=== PATIENT | female | born 1960 | race Caucasian/White ===

== ENCOUNTER 2023-03-11 10:42 | Emergency (ER) | payer MEDICARE, OTHER ==
[2023-03-11 10:54] VITALS: TEMP 98
[2023-03-11 11:54] LABS: Basophils % (A) 0 %; Eosinophils # (A) 0.2 k/uL (0-0.7); Eosinophils % (A) 2 %; HCT 40.3 % (34.0-46.0); HGB 13.4 gm/dL (11.4-16.0); Lymphocytes # (A) 1.7 k/uL (1.0-4.8); Lymphocytes % (A) 25 %; MCH 31.3 pg (25.0-35.0); MCHC 33.2 g/dL (31.0-37.0); MCV 94.2 fL (80.0-100.0); Mean Platelet Volume 7.8; Monocytes # (A) 0.3 k/uL (0-1.0); Monocytes % (A) 4 %; Neutrophils # (A) 4.6 k/uL (1.3-7.7); Neutrophils % (A) 68 %; Platelet Count 418 k/uL (150-450); RBC 4.28 m/uL (3.80-5.40); RDW 11.9 % (11.5-15.5); WBC 6.7 k/uL (3.8-10.6)
[2023-03-11 12:03] LABS: ALT 14 U/L (4-34); AST 22 U/L (14-36); African American GFR (CKD) 72 (>60 ml/min/1.73 sqM); Albumin 4.2 g/dL (3.5-5.0); Alcohol <10 mg/dL; Alkaline Phosphatase 97 U/L (38-126); Anion Gap 8 mmol/L; Blood Urea Nitrogen 29 mg/dL (7-17); Calcium 9.7 mg/dL (8.4-10.2); Carbon Dioxide 28 mmol/L (22-30); Chloride 100 mmol/L (98-107); Glucose 144 mg/dL (74-99); Non-African American GFR(CKD) 62 (>60 ml/min/1.73 sqM); Potassium 3.7 mmol/L (3.5-5.1); Sodium 136 mmol/L (137-145); Total Bilirubin 0.5 mg/dL (0.2-1.3); Total Protein 7.2 g/dL (6.3-8.2)
[2023-03-11 12:17] VITALS: RESP 18
[2023-03-11 12:27] LABS: Appearance,Urine Cloudy (Clear); Bilirubin,Urine Negative (Negative); Blood,Urine Small (Negative); Color,Urine Yellow; Glucose,Urine (UA) Trace (Negative); Hyaline Casts,Urine 2 /lpf (0-2); Ketones,Urine Negative (Negative); Leukocyte Esterase,Urine Small (Negative); Mucus,Urine Many /hpf; Nitrite,Urine Negative (Negative); PH, Urine 5.5 (5.0-8.0); Protein,Urine 1+ (Negative); RBC,Urine 7 /hpf (0-5); Specific Gravity,Urine 1.027 (1.001-1.035); Squamous Epithelial Cell,Urine 9 /hpf (0-4); WBC,Urine 11 /hpf (0-5)
[2023-03-11 12:31] LABS: Amphetamine Screen,Urine Not Detected (NotDetected); Barbiturate Screen,Urine Not Detected (NotDetected); Benzodiazepines Screen,Urine Not Detected (NotDetected); Cocaine Screen,Urine Not Detected (NotDetected); Methadone Screen, Urine Not Detected (NotDetected); Opiate Screen,Urine Not Detected (NotDetected); Oxycodone Screen, Urine Not Detected (NotDetected); Phencyclidine Screen,Urine Not Detected (NotDetected); Tricyclic Antidepressant,Urine Not Detected (NotDetected); Urn Cannabinoid Scrn Detected (NotDetected)
--- NOTE | 2023-03-11 13:49 | ED ---
Psych HPI - General Chief Complaint: Psychiatric Symptoms Stated Complaint: Mental Health Time Seen by Provider: 03/11/23 10:56 Source: patient, family, RN notes reviewed Mode of arrival: ambulatory Limitations: no limitations - History of Present Illness Initial Comments: This a 63-year-old female presents emergency Department with chief complaint of needing patient. Patient is here with son stated patient has underlying cognitive behavior, dementia patient's was brought from [place] son has recently obtained guardianship. Son states that they are looking for placement after they attempted to have her stay home but she's been becoming more aggressive at times. Patient had some other recent ER visits in which patient was treated for UTI. Patient did have hip surgery prior to leaving [place] that location patient was on pain meds but those have been discontinued. - Related Data Home Medications Medication Instructions Recorded Confirmed ARIPiprazole [Abilify] 15 mg PO DAILY 03/11/23 03/11/23 Benztropine Mesylate [Cogentin] 0.5 mg PO DAILY 03/11/23 03/11/23 Citalopram Hydrobromide [CeleXA] 10 mg PO DAILY 03/11/23 03/11/23 Midodrine HCl [ProAmatine] 10 mg PO BID 03/11/23 03/11/23 Mirtazapine 7.5 mg PO HS 03/11/23 03/11/23 Ondansetron [Zofran] 4 mg PO Q6H PRN 03/11/23 03/11/23 Allergies Allergy/AdvReac Type Severity Reaction Status Date / Time No Known Allergies Allergy Verified 03/11/23 10:44 Review of Systems ROS Statement: Those systems with pertinent positive or pertinent negative responses have been documented in the HPI. ROS Other: All systems not noted in ROS Statement are negative. Past Medical History Past Medical History: CVA/TIA, Dementia Additional Past Medical History / Comment(s): adjusted disorder, cognitive communication deficit, mild cognitive impairment of uncertain or unknown etiology History of Any Multi-Drug Resistant Organisms: None Reported Past Surgical History: Joint Replacement Past Psychological History: Anxiety, Depression Smoking Status: Former smoker Past Alcohol Use History: None Reported Past Drug Use History: None Reported General Exam Limitations: no limitations General appearance: alert, in no apparent distress Head exam: Present: atraumatic, normocephalic, normal inspection Eye exam: Present: normal appearance, PERRL, EOMI. Absent: scleral icterus, conjunctival injection, periorbital swelling ENT exam: Present: normal exam, normal oropharynx, mucous membranes moist Neck exam: Present: normal inspection, full ROM. Absent: tenderness, meningismus, lymphadenopathy Respiratory exam: Present: normal lung sounds bilaterally. Absent: respiratory distress, wheezes, rales, rhonchi, stridor Cardiovascular Exam: Present: regular rate, normal rhythm, normal heart sounds. Absent: systolic murmur, diastolic murmur, rubs, gallop, clicks Neurological exam: Present: alert, oriented X3, CN II-XII intact Skin exam: Present: warm, dry, intact, normal color. Absent: rash Course Vital Signs 03/11/23 03/11/23 03/11/23 10:45 12:16 13:52 Temperature 98 F Pulse Rate 61 103 H 105 H Respiratory 16 18 18 Rate Blood Pressure 93/62 103/81 127/97 O2 Sat by Pulse 88 L 97 97 Oximetry Medical Decision Making - Medical Decision Making Was pt. sent in by a medical professional or institution (, PA, BUDGET EXAMINER, urgent care, hospital, or shelter...) When possible be specific @ -No Did you speak to anyone other than the patient for history (EMS, parent, family, police, friend...)? What history was obtained from this source @ -Son providing all history Did you review nursing and triage notes (agree or disagree)? Why? @ -I reviewed and agree with nursing and triage notes Were old charts reviewed (outside hosp., previous admission, EMS record, old EKG, old radiological studies, urgent care reports/EKG's, shelter records)? Report findings @ -No old charts were reviewed Differential Diagnosis (chest pain, altered mental status, abdominal pain women, abdominal pain men, vaginal bleeding, weakness, fever, dyspnea, syncope, headache, dizziness, GI bleed, back pain, seizure, CVA, palpatations, mental health, musculoskeletal)? @ -Dementia, depression, behavioral issues EKG interpreted by me (3pts min.). @ -None X-rays interpreted by me (1pt min.). @ -None done CT interpreted by me (1pt min.). @ -None done U/S interpreted by me (1pt. min.). @ -None done What testing was considered but not performed or refused? (CT, X-rays, U/S, labs)? Why? @ -None What meds were considered but not given or refused? Why? @ -None Did you discuss the management of the patient with other professionals (professionals i.e. , PA, BUDGET EXAMINER, lab, RT, psych nurse, secondary social studies teacher, scientist/engineer, teacher, police patrol officer, casework supervisor)? Give summary @ -Sandra with case management who discussed with son the room regarding possible resources and further help. Was smoking cessation discussed for >3mins.? @ -No Was critical care preformed (if so, how long)? @ -No Were there social determinants of health that impacted care today? How? (Homelessness, low income, unemployed, alcoholism, drug addiction, transportation, low edu. Level, literacy, decrease access to med. care, residential, rehab)? @ -No Was there de-escalation of care discussed even if they declined (Discuss DNR or withdrawal of care, Hospice)? DNR status @ -No What co-morbidities impacted this encounter? (DM, HTN, Smoking, COPD, CAD, Cancer, CVA, ARF, Chemo, Hep., AIDS, mental health diagnosis, sleep apnea, morbid obesity)? @ -Dementia Was patient admitted / discharged? Hospital course, mention meds given and route, prescriptions, significant lab abnormalities, going to OR and other pertinent info. @ -Discharged had long discussion with son in the room regarding possible social assistance. Patient son was given multiple resources see states that he is able follow-up we discussed possible psychiatric evaluation this is an ongoing issue and there is no acute changes he agrees patient is stable for home and to return for any further concerns or changes. Undiagnosed new problem with uncertain prognosis? @ -No Drug Therapy requiring intensive monitoring for toxicity (Heparin, Nitro, Insulin, Cardizem)? @ -No Were any procedures done? @ -No Diagnosis/symptom? @ -Dementia Acute, or Chronic, or Acute on Chronic? @ -Acute Uncomplicated (without systemic symptoms) or Complicated (systemic symptoms)? @ -Uncomplicated Side effects of treatment? @ -No Exacerbation, Progression, or Severe Exacerbation? @ -No Poses a threat to life or bodily function? How? (Chest pain, USA, SC, pneumonia, PE, COPD, DKA, ARF, appy, cholecystitis, CVA, Diverticulitis, Homicidal, Suicidal, threat to staff... and all critical care pts) @ -No - Lab Data Result diagrams: 03/11/23 11:43 03/11/23 11:43 Lab Results 03/11/23 03/11/23 03/11/23 Range/Units 11:43 11:43 12:02 WBC 6.7 (3.8-10.6) k/uL RBC 4.28 (3.80-5.40) m/uL Hgb 13.4 (11.4-16.0) gm/dL Hct 40.3 (34.0-46.0) % MCV 94.2 (80.0-100.0) fL MCH 31.3 (25.0-35.0) pg MCHC 33.2 (31.0-37.0) g/dL RDW 11.9 (11.5-15.5) % Plt Count 418 (150-450) k/uL MPV 7.8 Neutrophils % 68 % Lymphocytes % 25 % Monocytes % 4 % Eosinophils % 2 % Basophils % 0 % Neutrophils # 4.6 (1.3-7.7) k/uL Lymphocytes # 1.7 (1.0-4.8) k/uL Monocytes # 0.3 (0-1.0) k/uL Eosinophils # 0.2 (0-0.7) k/uL Basophils # 0.0 (0-0.2) k/uL Sodium 136 L (137-145) mmol/L Potassium 3.7 (3.5-5.1) mmol/L Chloride 100 (98-107) mmol/L Carbon Dioxide 28 (22-30) mmol/L Anion Gap 8 mmol/L BUN 29 H (7-17) mg/dL Creatinine 0.98 (0.52-1.04) mg/dL Est GFR (CKD-EPI)AfAm 72 (>60 ml/min/1.73 sqM) Est GFR (CKD-EPI)NonAf 62 (>60 ml/min/1.73 sqM) Glucose 144 H (74-99) mg/dL Calcium 9.7 (8.4-10.2) mg/dL Total Bilirubin 0.5 (0.2-1.3) mg/dL AST 22 (14-36) U/L ALT 14 (4-34) U/L Alkaline Phosphatase 97 (38-126) U/L Total Protein 7.2 (6.3-8.2) g/dL Albumin 4.2 (3.5-5.0) g/dL TSH 1.300 (0.465-4.680) mIU/L Urine Color Urine Appearance (Clear) Urine pH (5.0-8.0) Ur Specific [place] (1.001-1.035) Urine Protein (Negative) Urine Glucose (UA) (Negative) Urine Ketones (Negative) Urine Blood (Negative) Urine Nitrite (Negative) Urine Bilirubin (Negative) Urine Urobilinogen (<2.0) mg/dL Ur Leukocyte Esterase (Negative) Urine RBC (0-5) /hpf Urine WBC (0-5) /hpf Ur Squamous Epith Cells (0-4) /hpf Hyaline Casts (0-2) /lpf Urine Mucus (None) /hpf Urine Opiates Screen Not Detected (NotDetected) Ur Oxycodone Screen Not Detected (NotDetected) Urine Methadone Screen Not Detected (NotDetected) Ur Propoxyphene Screen Not Detected (NotDetected) Ur Barbiturates Screen Not Detected (NotDetected) U Tricyclic Antidepress Not Detected (NotDetected) Ur Phencyclidine Scrn Not Detected (NotDetected) Ur Amphetamines Screen Not Detected (NotDetected) U Methamphetamines Scrn Not Detected (NotDetected) U Benzodiazepines Scrn Not Detected (NotDetected) Urine Cocaine Screen Not Detected (NotDetected) U Marijuana (THC) Screen Detected H (NotDetected) Serum Alcohol <10 mg/dL 03/11/23 Range/Units 12:02 WBC (3.8-10.6) k/uL RBC (3.80-5.40) m/uL Hgb (11.4-16.0) gm/dL Hct (34.0-46.0) % MCV (80.0-100.0) fL MCH (25.0-35.0) pg MCHC (31.0-37.0) g/dL RDW (11.5-15.5) % Plt Count (150-450) k/uL MPV Neutrophils % % Lymphocytes % % Monocytes % % Eosinophils % % Basophils % % Neutrophils # (1.3-7.7) k/uL Lymphocytes # (1.0-4.8) k/uL Monocytes # (0-1.0) k/uL Eosinophils # (0-0.7) k/uL Basophils # (0-0.2) k/uL Sodium (137-145) mmol/L Potassium (3.5-5.1) mmol/L Chloride (98-107) mmol/L Carbon Dioxide (22-30) mmol/L Anion Gap mmol/L BUN (7-17) mg/dL Creatinine (0.52-1.04) mg/dL Est GFR (CKD-EPI)AfAm (>60 ml/min/1.73 sqM) Est GFR (CKD-EPI)NonAf (>60 ml/min/1.73 sqM) Glucose (74-99) mg/dL Calcium (8.4-10.2) mg/dL Total Bilirubin (0.2-1.3) mg/dL AST (14-36) U/L ALT (4-34) U/L Alkaline Phosphatase (38-126) U/L Total Protein (6.3-8.2) g/dL Albumin (3.5-5.0) g/dL TSH (0.465-4.680) mIU/L Urine Color Yellow Urine Appearance Cloudy H (Clear) Urine pH 5.5 (5.0-8.0) Ur Specific [place] 1.027 (1.001-1.035) Urine Protein 1+ H (Negative) Urine Glucose (UA) Trace H (Negative) Urine Ketones Negative (Negative) Urine Blood Small H (Negative) Urine Nitrite Negative (Negative) Urine Bilirubin Negative (Negative) Urine Urobilinogen 2.0 (<2.0) mg/dL Ur Leukocyte Esterase Small H (Negative) Urine RBC 7 H (0-5) /hpf Urine WBC 11 H (0-5) /hpf Ur Squamous Epith Cells 9 H (0-4) /hpf Hyaline Casts 2 (0-2) /lpf Urine Mucus Many H (None) /hpf Urine Opiates Screen (NotDetected) Ur Oxycodone Screen (NotDetected) Urine Methadone Screen (NotDetected) Ur Propoxyphene Screen (NotDetected) Ur Barbiturates Screen (NotDetected) U Tricyclic Antidepress (NotDetected) Ur Phencyclidine Scrn (NotDetected) Ur Amphetamines Screen (NotDetected) U Methamphetamines Scrn (NotDetected) U Benzodiazepines Scrn (NotDetected) Urine Cocaine Screen (NotDetected) U Marijuana (THC) Screen (NotDetected) Serum Alcohol mg/dL Disposition Clinical Impression: Dementia, Behavior concern Disposition: HOME SELF-CARE Condition: Stable Additional Instructions: Rosi RAPHAEL can be contacted at [phone] and their address is [address] [place] [id number] Is patient prescribed a controlled substance at d/c from ED?: No Referrals: [facility] [REFERRING] - 1-2 days Centers,[facility] [NON-STAFF] - 1-2 days None,[facility] [Primary Care Provider] - 1-2 days Services,[facility] [NON-STAFF] - 1-2 days Forms: [facility], [facility], [facility] Time of Disposition: 14:53
[2023-03-11 15:14] VITALS: BP 141/99; PULSE 100
== END 2023-03-11 15:14 | disposition home or self-care (01) ==
LOC: EC 10:42
DX: F03.90 Unspecified dementia, unspecified severity, without behavioral disturbance, psychotic disturbance, mood disturbance, and anxiety (principal); F91.9 Conduct disorder, unspecified; F41.9 Anxiety disorder, unspecified; F32.A Depression, unspecified; Z87.891 Personal history of nicotine dependence; Z79.899 Other long term (current) drug therapy; Z86.73 Personal history of transient ischemic attack (TIA), and cerebral infarction without residual deficits
CPT/HCPCS: 36415; 80053; 80306; 80320; 81001; 84443; 85025; 87086; 99285

== ENCOUNTER 2023-03-26 08:00 | Inpatient (IN) | payer MEDICARE, OTHER ==
[2023-03-26] MEDS ORDERED: LORazepam 1 MG TAB PO STA ×2 (08:41→11:15)
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
[2023-03-26 09:16] LABS: Appearance,Urine Clear (Clear); Bilirubin,Urine Negative (Negative); Blood,Urine Negative (Negative); Color,Urine Colorless; Glucose,Urine (UA) Negative (Negative); Ketones,Urine Negative (Negative); Leukocyte Esterase,Urine Negative (Negative); Nitrite,Urine Negative (Negative); PH, Urine 6.5 (5.0-8.0); Protein,Urine Negative (Negative); Specific Gravity,Urine 1.007 (1.001-1.035); Urobilinogen,Urine <2.0 mg/dL (<2.0)
[2023-03-26 09:22] LABS: Basophils % (A) 0 %; Eosinophils # (A) 0.1 k/uL (0-0.7); Eosinophils % (A) 1 %; HCT 31.6 % (34.0-46.0); HGB 10.5 gm/dL (11.4-16.0); Lymphocytes # (A) 1.3 k/uL (1.0-4.8); Lymphocytes % (A) 29 %; MCH 32.1 pg (25.0-35.0); MCHC 33.3 g/dL (31.0-37.0); MCV 96.6 fL (80.0-100.0); Mean Platelet Volume 8.4; Monocytes # (A) 0.3 k/uL (0-1.0); Monocytes % (A) 6 %; Neutrophils # (A) 2.8 k/uL (1.3-7.7); Neutrophils % (A) 63 %; Platelet Count 237 k/uL (150-450); RBC 3.27 m/uL (3.80-5.40); RDW 12.1 % (11.5-15.5); WBC 4.5 k/uL (3.8-10.6)
[2023-03-26 09:27] LABS: ALT 13 U/L (4-34); AST 22 U/L (14-36); African American GFR (CKD) 89 (>60 ml/min/1.73 sqM); Albumin 3.5 g/dL (3.5-5.0); Alcohol <10 mg/dL; Alkaline Phosphatase 94 U/L (38-126); Anion Gap 3 mmol/L; Blood Urea Nitrogen 21 mg/dL (7-17); Calcium 8.7 mg/dL (8.4-10.2); Carbon Dioxide 26 mmol/L (22-30); Chloride 107 mmol/L (98-107); Glucose 90 mg/dL (74-99); Non-African American GFR(CKD) 77 (>60 ml/min/1.73 sqM); Potassium 4.1 mmol/L (3.5-5.1); Sodium 136 mmol/L (137-145); Total Bilirubin 0.5 mg/dL (0.2-1.3); Total Protein 6.3 g/dL (6.3-8.2)
--- NOTE | 2023-03-26 10:15 | CT ---
EXAMINATION TYPE: CT brain jesus manuel gannon DATE OF EXAM: 03/26/2023 COMPARISON: None HISTORY: head injury, altered mental status CT DLP: 1343 mGycm, Automated exposure control for dose reduction was used. CONTRAST: Patient injected with 0 mL of Isovue 300. CT of the brain is performed utilizing 3 mm thick sections through the posterior fossa and 3 mm thick sections through the remaining calvarium. Study is performed within 24 hours of arrival to the hospital. No abnormal hyperdensity is present to suggest an acute intracranial hemorrhage. No mass lesion is evident. No acute infarcts are evident. There are confluent periventricular white matter hypodensities, likel y on the basis of chronic white matter ischemic changes. There appears be an old infarct is in the ri ght basal ganglia. Right frontal lobe hypodensity is somewhat greater than elsewhere. Vasogenic edema should be considered. Consider follow-up MRI with contrast for additional evaluation. Ventricles and sulci are prominent for the patient age. Paranasal sinuses and mastoid air cells within the [id number] are clear. IMPRESSIONS: 1. Chronic appearing periventricular white matter ischemic changes. 2. Suspicion of old infarct right basal ganglia. 3. Right basal ganglion and periventricular white matter changes in the right frontal lobe are lower density than elsewhere, consider possible vasogenic edema. Contrast MRI is recommended for additional evaluation. CT cervical spine. COMPARISON: None CT of the cervical spine is performed in the axial plane at 2 mm thick sections. Reconstructed image s in the coronal, and sagittal plane are reviewed on the computer. No acute fractures are evident. There is a cervical kyphosis centered at C4. There is diffuse loss of disc height throughout the cervical spine. Vertebral body heights are preserved. There appears to be some sclerosis at C7-T1. No spinal canal stenosis is evident. Foraminal stenosis is present C4-5 bilaterally. Milder C3-4 foraminal narrowing may be present, due to uncovertebral joint hypertrophy. IMPRESSION: 1. Prominent cervical kyphosis centered at C4 can be positional or related to muscle spasm. 2. Degenerative disc changes. 3. Upper cervical spine foraminal narrowing due to uncovertebral joint hypertrophy. 4. No acute fractures.
[2023-03-26] MEDS ORDERED: ONDANSETRON 4 MG/2 ML VIAL IVP PRN (11:10)
[2023-03-26] MEDS ORDERED: LORazepam 0.5 MG TAB PO PRN (11:10)
[2023-03-26] MEDS ORDERED: NALOXONE 0.4 MG/ML 1 ML VIAL IV PRN (11:10)
[2023-03-26] MEDS ORDERED: LORazepam 2 MG/ML INJ IV STA (11:16)
[2023-03-26] MEDS: MIDODRINE 5 MG TAB PO SCH ×3 (14:58→18:23)
[2023-03-26] MEDS ORDERED: HALOPERIDOL LACTATE 5 MG/ML 1 ML VIAL IM PRN (15:36)
[2023-03-26] MEDS ORDERED: QUEtiapine 25 MG TAB PO PRN (15:36)
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
[2023-03-26] MEDS: QUEtiapine 25 MG TAB PO SCH ×2 (18:21→21:23)
[2023-03-26] MEDS: levETIRAcetam IV 500 MG/5 ML VIAL IVP SCH (18:31)
[2023-03-26] MEDS ORDERED: MIRTAZAPINE 15 MG TAB PO SCH (21:00)
[2023-03-26] MEDS: BENZTROPINE MESYLATE 0.5 MG TAB PO SCH (21:22)
[2023-03-26] MEDS ORDERED: hydrALAZINE HCL 20 MG/ML 1 ML VIAL IVP PRN (21:36)
[2023-03-27] MEDS: levETIRAcetam IV 500 MG/5 ML VIAL IVP SCH ×2 (06:33→18:29)
[2023-03-27] MEDS: MIDODRINE 5 MG TAB PO SCH ×2 (07:55→11:52)
[2023-03-27] MEDS: BENZTROPINE MESYLATE 0.5 MG TAB PO SCH ×2 (07:56→20:31)
[2023-03-27] MEDS: CITALOPRAM HYDROBROMIDE 10 MG TAB PO SCH (07:56)
[2023-03-27] MEDS ORDERED: ARIPiprazole 15 MG TAB PO SCH (09:00)
[2023-03-27] MEDS: ACETAMINOPHEN TAB 325 MG TAB PO PRN (11:38)
[2023-03-27] MEDS ORDERED: OLANZapine 5 MG TAB PO PRN (14:00)
[2023-03-27] MEDS ORDERED: OLANZapine 10 MG VIAL IM PRN (14:00)
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
--- NOTE | 2023-03-27 14:17 | P.PN ---
Subjective Progress Note Date: 03/27/23 This is a 63-year-old female who presented to the emergency department with son reporting increased issues regarding her advancing dementia along with significant history of schizophrenia with anxiety and depression. Patient was recently here in the ER for psychiatric evaluation and was staying at home with son and has recently moved here from [place]. Patient does not have a primary care provider in this area and family feel unsafe to take the patient home for their safety as well as hers. Patient apparently came at the sun with a knife and was brought here to the emergency department for further evaluation. Patient does have history of CVA/TIA, dementia, schizophrenia, anxiety and depr ession and has been staying at a facility out of [place] although started having increased aggressive behaviors and going in and out of other resident's rooms and through their belongings. Son was sent home on previous admission 2 weeks ago from the ER with resources as patient continues to have Medicaid insurance through [place] and does have [place] Medicare. Patient does not currently have a primary care provider and will need resources on that as well. Case management is now following an having inpatient case management evaluated the case for possible AFC. PT/OT therapy is being consulted for evaluation. There is a bed available per son at [facility] although needs an official referral and does not currently have a primary care provider. After discussion with case management in the ER there is no bed available at [facility] and patient would need to have Medicaid transferred over here from [place] and Medicaid could take up to [address] of the brain showed chronic appearing periventricular white matter ischemic changes and suspicion of old right basal ganglia in the right frontal lobe as well as considering possible vasogenic edema and consider MRI for further evaluation. CT of the spine showed prominent cervical kyphosis centered at C4 and some degenerative disc changes and will consult neurology and appreciate input and recommendations. Patient was admitted for possible AFC placement with PT/OT and case management consultation. 03/27/2023 Patient is seen and evaluated in follow-up today much more calm and continues with a sitter at the bedside. Sitter reports not eating much although did eat some of her breakfast. Awaiting psychiatry evaluation along with case management/social work following as patient will need medicated here at [place] and also AFC or even possibly [facility] admission. Patient does have extensive history of schizophrenia with dementia. Adjustments to medications being done and we will continue to monitor closely. MRI of the brain was ordered and pending at this time with neurology following. Patient is afebrile with no reported chest pain or shortness of breath. Would recommend physical therapy daily as patient is significantly weak. Patient is now reporting any nausea or vomiting. Encouraged oral intake and will add supplements as well. Review Of Systems: Unable to completely assess as patient is confused mostly nonverbal PHYSICAL EXAMINATION: GENERAL: The patient is alert and oriented x0-1, Well developed, thin built, elderly mostly nonverbal, awake, less anxious and calm at this time HEENT: Pupils are round and equally reacting to light. EOMI. no scleral icterus. No conjunctival pallor. Normocephalic, atraumatic. No pharyngeal erythema. No thyromegaly. CARDIOVASCULAR: S1 and S2 muffled PULMONARY: diminished breath sounds bilaterally with no wheezing or rhonchi no nicholas. ABDOMEN: soft. Nontender on exam. non-distended, normoactive bowel sounds. No palpable organomegaly. MUSCULOSKELETAL: No joint swelling or deformity. EXTREMITIES: No cyanosis, clubbing, or pedal edema. NEUROLOGICAL: Gross neurological examination did not reveal any focal deficits. Diffuse weakness SKIN: No rashes. Multiple sporadic bruises noted Assessment: Altered mental status, encephalopathy, multifactorial metabolic/toxic encephalopathy, with history of dementia and schizophrenia Vasogenic edema noted on CT of brain History of CVA/TIA History of anxiety/depression former smoker Generalized weakness with gait dysfunction GI prophylaxis DVT prophylaxis Full code Plan: Patient was admitted with consultation to PT/OT therapy as family reports they brought her here from [place] from an AF and that they would be able to help her although patient is becoming more aggressive and increasingly confused and was evaluated on previous admission 2 weeks ago by psychiatry and discharged home with resources although patient does not have a PCP and son did not follow- up. Psychiatry evaluating the patient and will make adjustments to medications and patient may benefit from a [facility] facility and social work was consulted Neurology following for concerns of possible vasogenic edema and MRI of the brain along with EEG was ordered and patient was started on Keppra Recommend physical therapy daily Avoid Ativan and will continue with Haldol and Seroquel. 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 Dr. Saji MD I have performed a history and examination and MDM of this patient, discussed the same with the dictator, and agree with the dictator's assessment and plan as written ,documented as a scribe. Based on total visit time, I have performed more than 50% of the visit. Any additional findings or plans will be noted. Objective - Vital Signs Vital signs: Vital Signs Temp 97.7 F 03/27/23 07:50 Pulse 78 03/27/23 08:00 Resp 16 03/27/23 07:50 BP 147/84 03/27/23 11:51 Pulse Ox 100 03/27/23 07:50 FiO2 Intake & Output 03/26/23 03/27/23 03/27/23 18:59 06:59 18:59 Intake Total 200 Balance 200 Weight 72.575 kg Intake: Oral 200 Other: Voiding Method Diaper - Labs CBC & Chem 7: 03/26/23 08:58 03/26/23 08:58
--- NOTE | 2023-03-27 16:50 | P.PN ---
Subjective Progress Note Date: 03/27/23 I am following-up with patient and she is about the same per nursing staff. Objective - Vital Signs Vital signs: Vital Signs Temp 99.0 F 03/27/23 13:42 Pulse 67 03/27/23 13:42 Resp 16 03/27/23 13:42 BP 126/82 03/27/23 13:42 Pulse Ox 96 03/27/23 13:42 FiO2 Intake & Output 03/26/23 03/27/23 03/27/23 18:59 06:59 18:59 Intake Total 200 Balance 200 Weight 72.575 kg Intake: Oral 200 Other: Voiding Method Diaper - Exam General: The patient is lying in bed and does not appear in acute distress. Neuro: Is limited because of her overall condition. Is severely drowsy but is awakeable to voice. She is oriented to self and states she is in hospital. She is following few simple commands (smiling, showing thumbs up). No facial weakness. No dysarthria. Motor: Limited but moving the bilateral briefly above gravity and minimally wiggled her toes. Some of the workup during this hospital visit consisted of: Serum alcohol: Less than 10 Sodium is 136, calcium is 8.7, AST ALT and the creatinine is within normal limits Vitamin B12: 321 Folate: 14.50 Ammonia level is <9. CT of the head is reported as chronic appearing periventricular white matter ischemic changes. Suspicious of old right basal ganglia. Right basal ganglia periventricular white matter changes in the right frontal lobe are lower density than elsewhere, consider possible vasogenic edema. Contrast MRI is recommended for additional evaluation. Personally reviewed the CT of the head and it's more prominent of hypodensity over the right frontal that's adjacent to the right lateral ventricle CT cervical spine is reported as prominent cervical kyphosis centered at C4 can be positional or related to muscle spasm. Degenerative disc changes. Upper cervical spine for mental narrowing due to on "vertebral joint hypertrophy. No acute fracture per - Labs CBC & Chem 7: 03/26/23 08:58 03/26/23 08:58 Assessment and Plan Assessment: This is a 63-year-old woman with history of dementia, schizophrenia who has moved from [facility] to [place] her son has been taking care of her while she made that moved to [place] but feels it hard to take care of her. It seems she had a fall with bruises all over the face. She's been having worsening of confusion and the recently came to her son's room with a knife. CT head shows right basal ganglia and periventricular white matter changes in the right frontal lobe are lower density than elsewhere, consider vasogenic edema. Encephalopathy: Rule out brain mass especially with ?suspicion of vasogenic edema over the right frontal region on CT head. Low normal vitamin B12 321. Underlying history of dementia History of schizophrenia Plan: Pending MRI of the brain with and without to rule out any brain mass or acute/subacute stroke. Pending routine EEG. Because of low normal Vitamin B12: I started the patient on Vitamin B12 1000mcg once IM then PO after that. I placed the patient on Keppra 500 mg IV every 12 hours as a seizure prophylaxis with this questionable vasogenic edema for mass and if MRI is negative then we'll discontinue it. If MRI does show any brain mass with edema then recommend oncology consultation. Psychiatry team is consulted We'll defer the rest of the medical management to primary team Will continue to follow. Time with Patient: Less than 30
[2023-03-27] MEDS ORDERED: CYANOCOBALAMIN 1,000 MCG/ML 1 ML VIAL IM ONE (17:00)
[2023-03-27] MEDS: OLANZapine 5 MG TAB PO SCH (20:31)
--- NOTE | 2023-03-27 20:46 | EEG ---
ELECTROENCEPHALOGRAM REPORT CLINICAL HISTORY: This is a 63-year-old woman with altered mental status. The video EEG is obtained to evaluate for seizure and epileptiform activity. RELEVANT MEDICATIONS: Keppra. EEG TYPE: A routine 21-channel EEG with video using the 10/20 electrode placement system. DESCRIPTION: Wakefulness is only obtained. During awake state, the background consists of low-to- moderate voltage of 6.5 to 7 Hz activity. Also, at times, the background consists of theta intermixed with delta activity. There is no physiological stage II sleep architecture. There is no focal slowing. INTERICTAL AND ICTAL: None. ACTIVATION PROCEDURE: Photic stimulation did not evoke a posterior driving response. There is no abnormality during the photic stimulation. Hyperventilation is not performed. CLINICAL INTERPRETATION: This is an abnormal routine EEG. The background slowing is suggestive of mild-to- moderate encephalopathy. Otherwise, there is no focal slowing, epileptiform discharges, or seizure on the EEG. Clinical correlation is recommended. ROBIN / LAKEN: [id number] /
[2023-03-28] MEDS: levETIRAcetam IV 500 MG/5 ML VIAL IVP SCH ×2 (05:37→17:58)
[2023-03-28] MEDS: CITALOPRAM HYDROBROMIDE 10 MG TAB PO SCH (08:34)
[2023-03-28] MEDS: CYANOCOBALAMIN 500 MCG TAB PO SCH (08:34)
--- NOTE | 2023-03-28 15:37 | P.PN ---
Subjective Progress Note Date: 03/28/23 I am following-up with patient and per nursing staff she is about the same. Objective - Vital Signs Vital signs: Vital Signs Temp 98.5 F 03/28/23 11:32 Pulse 80 03/28/23 11:32 Resp 14 03/28/23 11:32 BP 124/78 03/28/23 11:32 Pulse Ox 98 03/28/23 11:32 FiO2 Intake & Output 03/27/23 03/28/23 03/28/23 18:59 06:59 18:59 Intake Total 200 Balance 200 Intake: Oral 200 Other: Voiding Method Bedside Commode Toilet Toilet Diaper Bedside Commode Bedside Commode Diaper Diaper # Voids 1 - Exam General: The patient is sitting and does not appear in acute distress. Neuro: Is limited because of her overall condition. She is awake, alert, oriented to self. She stated she is in the hospital. She is following few simple commands (smiling, showing thumbs up). No facial weakness. No dysarthria. Motor: Limited but moving the bilateral briefly above gravity and minimally wiggled her toes. Some of the workup during this hospital visit consisted of: Serum alcohol: Less than 10 Sodium is 136, calcium is 8.7, AST ALT and the creatinine is within normal limits Vitamin B12: 321 Folate: 14.50 Ammonia level is <9. CT of the head is reported as chronic appearing periventricular white matter ischemic changes. Suspicious of old right basal ganglia. Right basal ganglia periventricular white matter changes in the right frontal lobe are lower density than elsewhere, consider possible vasogenic edema. Contrast MRI is recommended for additional evaluation. Personally reviewed the CT of the head and it's more prominent of hypodensity over the right frontal that's adjacent to the right lateral ventricle CT cervical spine is reported as prominent cervical kyphosis centered at C4 can be positional or related to muscle spasm. Degenerative disc changes. Upper cervical spine for mental narrowing due to on "vertebral joint hypertrophy. No acute fracture per Routine EEG is abnormal. Tobacco slowing suggestive of mild to moderate encephalopathy. Otherwise there is no focal slowing, epileptiform discharges or seizure in the EEG. - Labs CBC & Chem 7: 03/26/23 08:58 03/26/23 08:58 Assessment and Plan Assessment: This is a 63-year-old woman with history of dementia, schizophrenia who has moved from [facility] to [place] her son has been taking care of her while she made that moved to [place] but feels it hard to take care of her. It seems she had a fall with bruises all over the face. She's been having worsening of confusion and the recently came to her son's room with a knife. CT head shows right basal ganglia and periventricular white matter changes in the right frontal lobe are lower density than elsewhere, consider vasogenic edema. Encephalopathy: Rule out brain mass especially with ?suspicion of vasogenic edema over the right frontal region on CT head. Low normal vitamin B12 321. Underlying history of dementia History of schizophrenia Plan: Pending MRI of the brain with and without to rule out any brain mass or acute/subacute stroke. No seizure or discharges on the EEG. Because of low normal Vitamin B12: I started the patient on Vitamin B12 1000mcg PO. I placed the patient on Keppra 500 mg IV every 12 hours as a seizure prophylaxis with this questionable vasogenic edema for mass and if MRI is negative then we'll discontinue it. If MRI does show any brain mass with edema then will consider Decadron use and recommend oncology consultation. Psychiatry team is consulted We'll defer the rest of the medical management to primary team Will continue to follow. Time with Patient: Less than 30
--- NOTE | 2023-03-28 16:54 | P.PN ---
Subjective Progress Note Date: 03/28/23 This is a 63-year-old female who presented to the emergency department with son reporting increased issues regarding her advancing dementia along with significant history of schizophrenia with anxiety and depression. Patient was recently here in the ER for psychiatric evaluation and was staying at home with son and has recently moved here from [place]. Patient does not have a primary care provider in this area and family feel unsafe to take the patient home for their safety as well as hers. Patient apparently came at the sun with a knife and was brought here to the emergency department for further evaluation. Patient does have history of CVA/TIA, dementia, schizophrenia, anxiety and depr ession and has been staying at a facility out of [place] although started having increased aggressive behaviors and going in and out of other resident's rooms and through their belongings. Son was sent home on previous admission 2 weeks ago from the ER with resources as patient continues to have Medicaid insurance through [place] and does have [place] Medicare. Patient does not currently have a primary care provider and will need resources on that as well. Case management is now following an having inpatient case management evaluated the case for possible AFC. PT/OT therapy is being consulted for evaluation. There is a bed available per son at [facility] although needs an official referral and does not currently have a primary care provider. After discussion with case management in the ER there is no bed available at [facility] and patient would need to have Medicaid transferred over here from [place] and Medicaid could take up to [address] of the brain showed chronic appearing periventricular white matter ischemic changes and suspicion of old right basal ganglia in the right frontal lobe as well as considering possible vasogenic edema and consider MRI for further evaluation. CT of the spine showed prominent cervical kyphosis centered at C4 and some degenerative disc changes and will consult neurology and appreciate input and recommendations. Patient was admitted for possible AFC placement with PT/OT and case management consultation. 03/27/2023 Patient is seen and evaluated in follow-up today much more calm and continues with a sitter at the bedside. Sitter reports not eating much although did eat some of her breakfast. Awaiting psychiatry evaluation along with case management/social work following as patient will need medicated here at [place] and also AFC or even possibly [facility] admission. Patient does have extensive history of schizophrenia with dementia. Adjustments to medications being done and we will continue to monitor closely. MRI of the brain was ordered and pending at this time with neurology following. Patient is afebrile with no reported chest pain or shortness of breath. Would recommend physical therapy daily as patient is significantly weak. Patient is now reporting any nausea or vomiting. Encouraged oral intake and will add supplements as well. 03/28/2023 Patient is seen and evaluated today currently sitting up in the chair awake, alert and oriented 2 much more awake and appropriate and responding with conversation appropriately. Patient does have sitter at the bedside for safety as patient is an elopement risk and will monitor closely and possibly discontinue the sitter. Psychiatry evaluated the patient with adjustments to medications and patient is doing relatively well on these medications. Physical therapy evaluated the patient recommending rehab and awaiting insurance auth orization and accepting facility. Patient is currently afebrile with no reports of chest pain or shortness of breath. Patient tolerating diet with no reported nausea or vomiting. Review of systems: Constitutional: No reports of fatigue, fever, or chills Cardiovascular: No reports of chest pain or palpitations Respiratory: No reports of shortness of breath or cough GI: No reports of nausea, vomiting, or diarrhea : No reports of dysuria or retention Neurovascular: reports of generalized weakness or numbness, reports left hip pain All medications have been reviewed PHYSICAL EXAMINATION: GENERAL: The patient is alert and oriented x2, Well developed, thin built, elderly , awake, less anxious and calm at this time HEENT: Pupils are round and equally reacting to light. EOMI. no scleral icterus. No conjunctival pallor. Normocephalic, atraumatic. No pharyngeal erythema. No thyromegaly. CARDIOVASCULAR: S1 and S2 muffled PULMONARY: diminished breath sounds bilaterally with no wheezing or rhonchi noted. ABDOMEN: soft. Nontender on exam. non-distended, normoactive bowel sounds. No palpable organomegaly. MUSCULOSKELETAL: No joint swelling or deformity. EXTREMITIES: No cyanosis, clubbing, or pedal edema. NEUROLOGICAL: Gross neurological examination did not reveal any focal deficits. Diffuse weakness SKIN: No rashes. Multiple sporadic bruises noted Assessment: Altered mental status, encephalopathy, multifactorial metabolic/toxic encephalopathy, with history of dementia and schizophrenia Vasogenic edema noted on CT of brain History of CVA/TIA recent history of left hip arthroplasty in [place] 8 weeks ago History of anxiety/depression former smoker Generalized weakness with gait dysfunction GI prophylaxis DVT prophylaxis Full code Plan: Patient was admitted with consultation to PT/OT therapy as family reports they brought her here from [place] from an AFC and that they would be able to help her although patient is becoming more aggressive and increasingly confused and was evaluated on previous admission 2 weeks ago by psychiatry and discharged home with resources although patient does not have a PCP and son did not follow- up. Psychiatry evaluating the patient and will make adjustments to medications and patient may benefit from a [facility] psych facility and social work was consulted Neurology following for concerns of possible vasogenic edema and MRI of the brain along with EEG was ordered and patient was started on Keppra Recommend physical therapy daily and patient is weak recommending rehab and social work following working on admitting insurance authorization and ECF that will accept Encourage frequent reorientation and will continue drug safety physician and possibly remove as patient is more appropriate Await neurology workup and continued MRI of the brain is pending. Need further evaluation of her recent left hip surgical intervention in [place]. The impression and plan of care has been dictated by Pinky Daniels, nurse caroline marquez as directed. Dr. Saji MD I have performed a history and examination and MDM of this patient, discussed the same with the dictator, and agree with the dictator's assessment and plan as written ,documented as a scribe. Based on total visit time, I have performed more than 50% of the visit. Any additional findings or plans will be noted. Objective - Vital Signs Vital signs: Vital Signs Temp 98.3 F 03/27/23 19:33 Pulse 75 03/27/23 19:33 Resp 15 03/27/23 19:33 BP 129/82 03/27/23 19:33 Pulse Ox 95 03/27/23 19:33 FiO2 Intake & Output 03/27/23 03/28/23 03/28/23 18:59 06:59 18:59 Intake Total 200 Balance 200 Intake: Oral 200 Other: Voiding Method Bedside Commode Toilet Toilet Diaper Bedside Commode Bedside Commode Diaper Diaper # Voids 1 - Labs CBC & Chem 7: 03/26/23 08:58 03/26/23 08:58
[2023-03-28] MEDS: OLANZapine 5 MG TAB PO SCH (20:39)
[2023-03-28] MEDS: BENZTROPINE MESYLATE 0.5 MG TAB PO SCH (20:39)
[2023-03-29] MEDS: levETIRAcetam IV 500 MG/5 ML VIAL IVP SCH ×2 (05:37→17:35)
[2023-03-29] MEDS: CYANOCOBALAMIN 500 MCG TAB PO SCH (09:34)
[2023-03-29] MEDS: CITALOPRAM HYDROBROMIDE 10 MG TAB PO SCH (09:34)
--- NOTE | 2023-03-29 11:33 | MR ---
EXAMINATION TYPE: MR brain wo/w con DATE OF EXAM: 03/29/2023 COMPARISON: HISTORY: Vasogenic edema, dementia. TECHNIQUE: Multiplanar, multisequence images of the brain and brainstem is performed without and with IV contras t, utilizing 7.5 mL intravenous Gadavist . FINDINGS: Diffusion weighted images demonstrate small focal area 5 mm diffusion restriction lateral s uperior right parietal lobe with corresponding FLAIR abnormal signal and enhancement.. There is moderate generalized degenerative change. Diffuse focal areas of abnormal signal throughout the white matter ischemic change. Craniocervical junction maintained. Sella turcica is normal. There is severe degenerative changes of visualized cervical spine. No additional areas of abnormal enhancement are seen. Abnormal signal diffusely throughout the brains tem most marked involving slight increase prior ischemia. No abnormal enhancement. Changes of chronic mastoiditis and sinusitis with nasal septal deviation. The dural venous sinuses enhance normally. There is artifact which limits assessment of the distal IC A evaluation with some areas of signal noted in the carotid canal on the right most likely artifactua l. Recommended follow-up ultrasound. IMPRESSION: 1. Small 5 mm area of diffusion restriction with enhancement superior lateral right parietal lobe. Fi nding is too small to characterize. May reflect a tiny focus ischemia. Tiny intracranial lesion not e xcluded would recommend short-term follow-up 1 month MRI with contrast to determine finding resolves. 2. Degenerative and extensive remote ischemic change. 3. Recommend ultrasound carotid arteries.
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
[2023-03-29] MEDS: ACETAMINOPHEN TAB 325 MG TAB PO PRN (20:24)
[2023-03-29] MEDS: BENZTROPINE MESYLATE 0.5 MG TAB PO SCH (20:24)
[2023-03-29] MEDS: OLANZapine 5 MG TAB PO SCH (20:24)
[2023-03-30] MEDS: levETIRAcetam IV 500 MG/5 ML VIAL IVP SCH ×2 (05:39→18:09)
[2023-03-30] MEDS: CYANOCOBALAMIN 500 MCG TAB PO SCH (10:42)
[2023-03-30] MEDS: CITALOPRAM HYDROBROMIDE 10 MG TAB PO SCH (10:42)
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
--- NOTE | 2023-03-30 12:54 | US ---
EXAMINATION TYPE: US carotid duplex BILAT DATE OF EXAM: 03/30/2023 COMPARISON: NONE CLINICAL INDICATION: Female, 63 years old with history of abnormal findings on mri brain; TECHNIQUE: Carotid duplex ultrasound examination. Indirect Doppler criteria was utilized. FINDINGS: EXAM MEASUREMENTS: RIGHT: Peak Systolic Velocity (PSV) cm/sec ----- Right CCA: 73.4 ----- Right ICA: ----- Right ECA: 184 ICA/CCA ratio: RIGHT: End Diastole cm/sec ----- Right CCA: 23.4 ----- Right ICA: ----- Right ECA: 59.9 LEFT: Peak Systolic Velocity (PSV) cm/sec ----- Left CCA: 112 ----- Left ICA: 246 ----- Left ECA: 201 ICA/CCA ratio: 2.2 LEFT: End Diastole cm/sec ----- Left CCA: 44.2 ----- Left ICA: 67.2 ----- Left ECA: 51.0 VERTEBRALS (direction of flow): Right Vertebral: Antegrade Left Vertebral: Antegrade Rhythm: Normal GLASS TECHNICIAN NOTES: *Limitations due to patient's mental status. Possible occlusion of right ICA. Dif ficult to visualize left ECA. Increased velocities left ICA IMPRESSION: 1. Possible occlusion of the proximal right internal carotid artery. 2. Severe greater than 70% stenosis of the left internal carotid artery secondary to severe plaque fo rmation. Criteria for Assigning % of Stenosis / Diameter reduction (Estimation based on the indirect measurements of the internal carotid artery velocities (ICA PSV). 1. Normal (no stenosis)=ICA PSV < 125 cm/s: ratio < 2.0: ICA EDV<40 cm/s. 2. Less than 50% stenosis=ICA PSV < 125 cm/s: ratio < 2.0: ICA EDV<40 cm/s. 3. 50 to 69% stenosis=ICA PSV of 125 to 230 cm/s: ration 2.0 ? 4.0: ICA EDV 40-100 cm/s. 4. Greater than 70% stenosis to near occlusion= ICA PSV > 230 cm/s: ratio > 4.0: ICA EDV > 100 cm/s. 5. Near occlusion= ICA PSV velocities may be low or undetectable: variable ratio and ICA EDV. 6. Total occlusion=unable to detect flow.
[2023-03-30] MEDS ORDERED: SENNOSIDES 8.6 MG TAB PO PRN (13:28)
--- NOTE | 2023-03-30 15:48 | P.PN ---
Subjective Progress Note Date: 03/30/23 I am following-up with patient and she feels about the same. She denies of any new neurological deficit. Objective - Vital Signs Vital signs: Vital Signs Temp 98.5 F 03/30/23 14:16 Pulse 85 03/30/23 14:16 Resp 18 03/30/23 14:16 BP 94/61 03/30/23 14:16 Pulse Ox 99 03/30/23 14:16 FiO2 Intake & Output 03/29/23 03/30/23 03/30/23 18:59 06:59 18:59 Intake Total 600 Balance 600 Intake: Oral 600 Other: Voiding Method Toilet Toilet Toilet Bedside Commode Bedside Commode Bedside Commode Diaper Diaper Diaper # Voids 4 4 4 - Exam General: The patient is sitting in a recliner chair and is not in acute distress. Neuro: Is limited because of her overall condition. She is awake, alert, oriented to self. She stated she is in the hospital. She stated the year is 2002 and did not know month. She is following few simple commands (smiling, showing thumbs up). Pupils are round, equal and reactive to light. Pupils are 3-4mm bilaterally. Visual ortega are full to confrontation. No facial weakness. No dysarthria. Motor: Lifting all extremities above gravity. Some of the workup during this hospital visit consisted of: Serum alcohol: Less than 10 Sodium is 136, calcium is 8.7, AST ALT and the creatinine is within normal limits Vitamin B12: 321 Folate: 14.50 Ammonia level is <9. CT of the head is reported as chronic appearing periventricular white matter ischemic changes. Suspicious of old right basal ganglia. Right basal ganglia periventricular white matter changes in the right frontal lobe are lower density than elsewhere, consider possible vasogenic edema. Contrast MRI is recommended for additional evaluation. Personally reviewed the CT of the head and it's more prominent of hypodensity over the right frontal that's adjacent to the right lateral ventricle CT cervical spine is reported as prominent cervical kyphosis centered at C4 can be positional or related to muscle spasm. Degenerative disc changes. Upper cervical spine for mental narrowing due to on "vertebral joint hypertrophy. No acute fracture per Routine EEG is abnormal. Tobacco slowing suggestive of mild to moderate encephalopathy. Otherwise there is no focal slowing, epileptiform discharges or seizure in the EEG. MR the brain is reported as small 5 mm area of diffusion restriction with enhancement superior lateral right parietal lobe. Finding is too small to characterize. May reflect a tiny focus ischemia. Tiny intracranial lesion not excluded would recommend a short follow-up 1 month MRI with contrast to determine finding resolves. Degenerative and extensive remote ischemic changes. I commend ultrasound carotid artery. I personally reviewed the MRI and the patient does has a small focus over the right frontal parietal on the cortex region and it enhances. Also the patient has edema over the right frontal region near the right lateral horn of ventricle but not in the same sites of the right frontal parietal enhancement. Carotid duplex: It is reported as possible occlusion of the proximal right internal carotid artery. Superior greater than 70% stenosis of left internal carotid artery surgery due to severe plaque formation. - Labs CBC & Chem 7: 03/26/23 08:58 03/26/23 08:58 Assessment and Plan Assessment: This is a 63-year-old woman with history of dementia, schizophrenia who has moved from [facility] to [place] her son has been taking care of her while she made that moved to [place] but feels it hard to take care of her. It seems she had a fall with bruises all over the face. She's been having worsening of confusion and the recently came to her son's room with a knife. CT head shows right basal ganglia and periventricular white matter changes in the right frontal lobe are lower density than elsewhere, consider vasogenic edema. Encephalopathy: Rule out brain mass especially with ?suspicion of vasogenic sarah ma over the right frontal region on CT head. On MRI has small focal enhancement of right fronto/parietal at cortex region but does have ?edema near right frontal near anterior lateral horn ventricle and no enhancement. Per radiologist may reflect tiny ischemia but I am concerned about brain mass. --mentation is improving. Possible occlusion right ICA and >70% stenosis of left ICA on carotid duplex. Low normal vitamin B12 321. Underlying history of dementia History of schizophrenia Plan: * MR the brain is reported as small 5 mm area of diffusion restriction with enh ancement superior lateral right parietal lobe. Finding is too small to characterize. May reflect a tiny focus ischemia. Tiny intracranial lesion not excluded would recommend a short follow-up 1 month MRI with contrast to determine finding resolves. Degenerative and extensive remote ischemic lozano ges. I commend ultrasound carotid artery. I personally reviewed the MRI and the patient does has a small focus over the right frontal parietal on the cortex region and it enhances. Also the patient has edema over the right frontal region near the right lateral horn of ventricle but not in the same sites of the right frontal parietal enhancement. * Will try to contact Radiology team this coming up Saturday to review images again. * I am concerned about ?brain mass. * I placed the patient on Keppra 500 mg IV every 12 hours as a seizure prophylaxis with this questionable vasogenic edema for mass * I consulted Oncology team. * Carotid duplex: It is reported as possible occlusion of the proximal right internal carotid artery. Superior greater than 70% stenosis of left internal carotid artery surgery due to severe plaque formation. * I ordered CTA head and neck. * Primary team consulted vascular surgery team. * No seizure or discharges on the EEG. * After clarifying with Radiologist this Saturday and stated no then will consider ASA 81mg daily. I increased Lipitor to 80mg qhs from 40mg for carotid stenosis. * Ordered 2D echo and lipid panel. * Because of low normal Vitamin B12: I started the patient on Vitamin B12 1000mcg PO. * Psychiatry team is consulted * We'll defer the rest of the medical management to primary team The plan is discussed with the N.P. from primary team. Will continue to follow. Time with Patient: Less than 30
--- NOTE | 2023-03-30 17:56 | CT ---
EXAMINATION TYPE: CT angio head neck DATE OF EXAM: 03/30/2023 HISTORY: Carotid stenosis. Please compare to u/s. COMPARISON: None CT DLP: 261.2 mGycm. Automated Exposure Control for Dose Reduction was Utilized. TECHNIQUE: CTA scan of the head and neck is performed with IV Contrast, patient injected with 65 ml mL of Isovue 370, axial images are obtained, coronal and sagittal reformatted images are reviewed. 3D reconstructed images are created on an independent workstation and reviewed. FINDINGS: The brachiocephalic origins are widely patent. There is occlusion of the right internal carotid artery at the carotid bifurcation secondary to a hea vily calcified plaque. There is a heavily calcified the left carotid bifurcation resulting in a sever e proximal left internal carotid artery stenosis. Intracranially, the right middle cerebral artery fills via the anterior communicating artery. There is no sizable aneurysm sac or vascular malformation. There are no segmental occlusions of the anterio r, middle or posterior cerebral arteries. IMPRESSION: 1. Occlusion of the right internal carotid artery at its origin. 2. Severe stenosis of the origin of the left internal carotid artery. 3. Complete filling of the [place] of [place] with without segmental occlusion, sizable aneurysm sac va scular malformation, see above.
[2023-03-30] MEDS: ATORVASTATIN 40 MG TAB PO SCH (20:12)
[2023-03-30] MEDS: LORazepam 0.5 MG TAB PO SCH (20:12)
[2023-03-30] MEDS: BENZTROPINE MESYLATE 0.5 MG TAB PO SCH (20:12)
[2023-03-30] MEDS: OLANZapine 5 MG TAB PO SCH (20:13)
--- NOTE | 2023-03-30 21:46 | P.PN ---
Subjective Progress Note Date: 03/30/23 This is a 63-year-old female who presented to the emergency department with son reporting increased issues regarding her advancing dementia along with significant history of schizophrenia with anxiety and depression. Patient was recently here in the ER for psychiatric evaluation and was staying at home with son and has recently moved here from [place]. Patient does not have a primary care provider in this area and family feel unsafe to take the patient home for their safety as well as hers. Patient apparently came at the sun with a knife and was brought here to the emergency department for further evaluation. Patient does have history of CVA/TIA, dementia, schizophrenia, anxiety and depr ession and has been staying at a facility out of [place] although started having increased aggressive behaviors and going in and out of other resident's rooms and through their belongings. Son was sent home on previous admission 2 weeks ago from the ER with resources as patient continues to have Medicaid insurance through [place] and does have [place] Medicare. Patient does not currently have a primary care provider and will need resources on that as well. Case management is now following an having inpatient case management evaluated the case for possible AFC. PT/OT therapy is being consulted for evaluation. There is a bed available per son at [facility] although needs an official referral and does not currently have a primary care provider. After discussion with case management in the ER there is no bed available at [facility] and patient would need to have Medicaid transferred over here from [place] and Medicaid could take up to [address] of the brain showed chronic appearing periventricular white matter ischemic changes and suspicion of old right basal ganglia in the right frontal lobe as well as considering possible vasogenic edema and consider MRI for further evaluation. CT of the spine showed prominent cervical kyphosis centered at C4 and some degenerative disc changes and will consult neurology and appreciate input and recommendations. Patient was admitted for possible AFC placement with PT/OT and case management consultation. 03/27/2023 Patient is seen and evaluated in follow-up today much more calm and continues with a sitter at the bedside. Sitter reports not eating much although did eat some of her breakfast. Awaiting psychiatry evaluation along with case management/social work following as patient will need medicated here at [place] and also AFC or even possibly [facility] psych admission. Patient does have extensive history of schizophrenia with dementia. Adjustments to medications being done and we will continue to monitor closely. MRI of the brain was ordered and pending at this time with neurology following. Patient is afebrile with no reported chest pain or shortness of breath. Would recommend physical therapy daily as patient is significantly weak. Patient is now reporting any nausea or vomiting. Encouraged oral intake and will add supplements as well. 03/28/2023 Patient is seen and evaluated today currently sitting up in the chair awake, alert and oriented 2 much more awake and appropriate and responding with conversation appropriately. Patient does have sitter at the bedside for safety as patient is an elopement risk and will monitor closely and possibly discontinue the sitter. Psychiatry evaluated the patient with adjustments to medications and patient is doing relatively well on these medications. Physical therapy evaluated the patient recommending rehab and awaiting insurance auth orization and accepting facility. Patient is currently afebrile with no reports of chest pain or shortness of breath. Patient tolerating diet with no reported nausea or vomiting. 03/29/2023 Patient is evaluated today resting in bed. No acute complaints. Pt is A and O x 2. EEG was done which was an abnormal routine EEG, there is background slowing suggestive of mild to moderate encephalopathy. Otherwise there is no focal slowing, epileptiform discharges or seizures on the EEG. Pending MRI which will be done today. Patient has been accepted at an [facility], [facility] and auth has been started. Neurology following closely. Hemodynamically stable. 03/30/2023 Patient is seen in follow-up today currently sitting up in the chair mentation is improving being followed by neurology along with psychiatry. Patient underwent MRI of the brain which showed a small 5 mm area of diffusion restriction with enhancement on the superior-lateral right parietal lobe finding to small to characterize although may reflect a tiny focus of ischemia and tiny intracranial lesion not excluded recommending short-term follow-up also showing some ICA stenosis recommending carotid Dopplers. Carotid Doppler was obtained showing possible occlusion of the proximal right internal carotid artery and severe greater than 70% stenosis of the left internal carotid artery secondary to severe plaque formation. Neurology continues to undergo workup and has ordered a CT angiogram which is pending. Vascular surgery consult placed and will place the patient on statin therapy. Review of Systems Constitutional: Denied any fatigue denied any fever. Cardio vascular: denied any chest pain, palpitations Gastrointestinal: denied any nausea, vomiting, diarrhea Pulmonary: Denied any shortness of breath cough Neurologic denied any new focal deficits All inpatient medications were reviewed and appropriate changes in these medicat ions as dictated in the interval history and assessment and plan. PHYSICAL EXAMINATION: GENERAL: The patient is alert and oriented x2, Well developed, thin built, e lderly , awake, appropriate and calm at this time HEENT: Pupils are round and equally reacting to light. EOMI. no scleral icterus. No conjunctival pallor. Normocephalic, atraumatic. No pharyngeal erythema. No thyromegaly. CARDIOVASCULAR: S1 and S2 muffled PULMONARY: diminished breath sounds bilaterally with no wheezing or rhonchi noted. ABDOMEN: soft. Nontender on exam. non-distended, normoactive bowel sounds. No palpable organomegaly. MUSCULOSKELETAL: No joint swelling or deformity. EXTREMITIES: No cyanosis, clubbing, or pedal edema. NEUROLOGICAL: Gross neurological examination did not reveal any focal deficits. Diffuse weakness SKIN: No rashes. Multiple sporadic bruises noted Assessment: Altered mental status, encephalopathy, multifactorial metabolic/toxic encephalopathy, with history of dementia and schizophrenia Vasogenic edema noted on CT of brain with concerns of possible lesion, oncology consulted Occlusion of the proximal right internal carotid artery and severe greater that 70% stenosis of the left internal carotid artery secondary to severe plaque formation as noted on Doppler History of CVA/TIA recent history of left hip arthroplasty in [place] 8 weeks ago History of anxiety/depression former smoker Generalized weakness with gait dysfunction GI prophylaxis DVT prophylaxis Full code Plan: Patient was admitted with consultation to PT/OT therapy as family reports they brought her here from [place] from an AFC and that they would be able to help her although patient is becoming more aggressive and increasingly confused and was evaluated on previous admission 2 weeks ago by psychiatry and discharged home with resources although patient does not have a PCP and son did not follow- up. Son is working on obtaining medicated here and social work following an in [facility] has accepted the patient awaiting insurance authorization Psychiatry evaluating the patient and making adjustments to medications. Ativan scheduled added per psychiatry Neurology following and awaiting to review the imaging with radiology and also order CTA as carotid Doppler showed significant plaque formation and stenosis. Statin therapy increased to 80 mg daily and also consulted oncology with concerns of possible brain lesion Vascular surgery consulted and appreciate input recommendations regarding Doppler results Encourage frequent reorientation, vice president safety removed from bedside today. Awaiting further neurology workup and vascular surgery consult as well as oncolo gy consult The impression and plan of care has been dictated by Pinky Daniels, nurse practitioner as directed. Dr. Saji MD I have performed a history and examination and MDM of this patient, discussed the same with the dictator, and agree with the dictator's assessment and plan as written ,documented as a scribe. Based on total visit time, I have performed more than 50% of the visit. Any additional findings or plans will be noted. Objective - Vital Signs Vital signs: Vital Signs Temp 98.8 F 03/29/23 20:00 Pulse 95 03/29/23 20:00 Resp 16 03/29/23 20:00 BP 144/84 03/29/23 20:00 Pulse Ox 97 03/29/23 20:00 FiO2 Intake & Output 03/29/23 03/30/23 03/30/23 18:59 06:59 18:59 Intake Total 600 Balance 600 Intake: Oral 600 Other: Voiding Method Toilet Toilet Bedside Commode Bedside Commode Diaper Diaper # Voids 4 4 - Labs CBC & Chem 7: 03/26/23 08:58 03/26/23 08:58
[2023-03-31] MEDS: levETIRAcetam IV 500 MG/5 ML VIAL IVP SCH ×2 (06:00→18:12)
[2023-03-31 07:23] LABS: Chol/HDL Ratio 4.21 Ratio
[2023-03-31 08:03] LABS: Basophils % (A) 0 %; Eosinophils # (A) 0.2 k/uL (0-0.7); Eosinophils % (A) 3 %; HCT 34.3 % (34.0-46.0); HGB 11.3 gm/dL (11.4-16.0); Lymphocytes # (A) 1.7 k/uL (1.0-4.8); Lymphocytes % (A) 29 %; MCH 31.2 pg (25.0-35.0); MCHC 32.8 g/dL (31.0-37.0); MCV 95.1 fL (80.0-100.0); Mean Platelet Volume 8.3; Monocytes # (A) 0.3 k/uL (0-1.0); Monocytes % (A) 6 %; Neutrophils # (A) 3.6 k/uL (1.3-7.7); Neutrophils % (A) 61 %; Platelet Count 363 k/uL (150-450); RBC 3.61 m/uL (3.80-5.40); RDW 12.3 % (11.5-15.5); WBC 5.8 k/uL (3.8-10.6)
[2023-03-31] MEDS: CYANOCOBALAMIN 500 MCG TAB PO SCH (08:41)
[2023-03-31] MEDS: CITALOPRAM HYDROBROMIDE 10 MG TAB PO SCH (08:41)
[2023-03-31] MEDS: PANTOPRAZOLE 40 MG TABLET PO SCH (08:41)
[2023-03-31] MEDS: LORazepam 0.5 MG TAB PO SCH ×2 (08:42→21:17)
[2023-03-31 08:57] LABS: African American GFR (CKD) 85 (>60 ml/min/1.73 sqM); Anion Gap 8 mmol/L; Blood Urea Nitrogen 12 mg/dL (7-17); Calcium 9.3 mg/dL (8.4-10.2); Carbon Dioxide 25 mmol/L (22-30); Chloride 103 mmol/L (98-107); Glucose 85 mg/dL (74-99); Magnesium 1.9 mg/dL (1.6-2.3); Non-African American GFR(CKD) 74 (>60 ml/min/1.73 sqM); Sodium 136 mmol/L (137-145)
--- NOTE | 2023-03-31 12:26 | P.PN ---
Subjective Progress Note Date: 03/31/23 I am following-up with patient and she feels she is doing better. She denies of any new neurological issues. Per nurse she thinks she is doing better compared to initial presentation. Objective - Vital Signs Vital signs: Vital Signs Temp 98.1 F 03/31/23 07:44 Pulse 84 03/31/23 07:44 Resp 16 03/31/23 07:44 BP 118/78 03/31/23 07:44 Pulse Ox 97 03/31/23 07:44 FiO2 Intake & Output 03/30/23 03/31/23 03/31/23 18:59 06:59 18:59 Intake Total 120 Balance 120 Intake: Oral 120 Other: Voiding Method Toilet Toilet Toilet Bedside Commode Diaper Diaper # Voids 6 3 1 - Exam General: The patient is sitting in a recliner chair and is not in acute distress. Neuro: Is limited because of her overall condition. She is awake, alert, oriented to self. She stated she is in the hospital. She stated the year is 2022 and did not know month. She is following few simple commands (smiling, showing thumbs up). Pupils are round, equal and reactive to light. Pupils are 3-4mm bilaterally. Visual ortega are full to confrontation. No facial weakness. No dysarthria. Has hypophonia Motor: Strength is 5/5 throughout. Some of the workup during this hospital visit consisted of: Serum alcohol: Less than 10 Sodium is 136, calcium is 8.7, AST ALT and the creatinine is within normal limits Vitamin B12: 321 Folate: 14.50 Ammonia level is <9. CT of the head is reported as chronic appearing periventricular white matter ischemic changes. Suspicious of old right basal ganglia. Right basal ganglia periventricular white matter changes in the right frontal lobe are lower density than elsewhere, consider possible vasogenic edema. Contrast MRI is recommended for additional evaluation. Personally reviewed the CT of the head and it's more prominent of hypodensity over the right frontal that's adjacent to the right lateral ventricle CT cervical spine is reported as prominent cervical kyphosis centered at C4 can be positional or related to muscle spasm. Degenerative disc changes. Upper cervical spine for mental narrowing due to on "vertebral joint hypertrophy. No acute fracture per Routine EEG is abnormal. Tobacco slowing suggestive of mild to moderate encephalopathy. Otherwise there is no focal slowing, epileptiform discharges or seizure in the EEG. MR the brain is reported as small 5 mm area of diffusion restriction with enhancement superior lateral right parietal lobe. Finding is too small to characterize. May reflect a tiny focus ischemia. Tiny intracranial lesion not excluded would recommend a short follow-up 1 month MRI with contrast to determine finding resolves. Degenerative and extensive remote ischemic changes. I commend ultrasound carotid artery. I personally reviewed the MRI and the patient does has a small focus over the right frontal parietal on the cortex region and it enhances. Also the patient has edema over the right frontal region near the right lateral horn of ventricle but not in the same sites of the right frontal parietal enhancement. Carotid duplex: It is reported as possible occlusion of the proximal right internal carotid artery. Superior greater than 70% stenosis of left internal carotid artery surgery due to severe plaque formation. CTA head and neck: It is reported as occlusion of the right ICA at its origin. Severe stenosis of the origin of the left ICA. Complete filling of the [place] with without segment occlusion, sizable aneurysm size vascular motiv ation, see above. In the body they reported it is reported that there is no sizable aneurysm sac or vascular malformation. - Labs CBC & Chem 7: 03/31/23 06:52 03/31/23 06:52 Labs: Abnormal Lab Results - Last 24 Hours (Table) 03/30/23 03/31/23 03/31/23 Range/Units 16:50 06:52 06:52 RBC 3.61 L (3.80-5.40) m/uL Hgb 11.3 L (11.4-16.0) gm/dL Sodium 136 L (137-145) mmol/L Cholesterol 209.00 H (0.00-200.00) mg/dL LDL Cholesterol, Calc 135.0 H (0.0-131.0) mg/dL Assessment and Plan Assessment: This is a 63-year-old woman with history of dementia, schizophrenia who has moved from [facility] to [place] her son has been taking care of her while she made that moved to [place] but feels it hard to take care of her. It seems she had a fall with bruises all over the face. She's been having worsening of confusion and the recently came to her son's room with a knife. CT head shows right basal ganglia and periventricular white matter changes in the right frontal lobe are lower density than elsewhere, consider vasogenic edema. Encephalopathy: Rule out brain mass especially with ?suspicion of vasogenic edema over the right frontal region on CT head. On MRI has small focal enhancement of right fronto/parietal at cortex region but does have ?edema near right frontal near anterior lateral horn ventricle and no enhancement. Per radio logist may reflect tiny ischemia but I am concerned about brain mass. --mentation drastically improved compared. Possible occlusion right ICA and >70% stenosis of left ICA on carotid duplex. On the CTA there is also occlusion of the right ICA and severe stenosis of the origin of left ICA. Low normal vitamin B12 321. Underlying history of dementia History of schizophrenia Plan: * MR the brain is reported as small 5 mm area of diffusion restriction with enhancement superior lateral right parietal lobe. Finding is too small to characterize. May reflect a tiny focus ischemia. Tiny intracranial lesion not excluded would recommend a short follow-up 1 month MRI with contrast to determine finding resolves. Degenerative and extensive remote ischemic changes. I commend ultrasound carotid artery. I personally reviewed the MRI and the patient does has a small focus over the right frontal parietal on the cortex region and it enhances. Also the patient has edema over the right frontal region near the right lateral horn of ventricle but not in the same sites of the right frontal parietal enhancement. I am concerned about ?brain mass. * Will try to contact Radiology team this coming up Saturday to review MRI images again whether it is a brain mass or ?stroke. * I placed the patient on Keppra 500 mg IV every 12 hours as a seizure prophylaxis with this questionable vasogenic edema for mass * I consulted Oncology team. * Carotid duplex: It is reported as possible occlusion of the proximal right internal carotid artery. Superior greater than 70% stenosis of left internal carotid artery surgery due to severe plaque formation. On CTA it also reports occlusion of right ICA and severe stenosis of left ICA. Primary team consulted vascular surgery team. * No seizure or discharges on the EEG. * After clarifying with Radiologist this Saturday and stated no then will consider ASA 81mg daily. I increased Lipitor to 80mg qhs from 40mg for carotid stenosis. * Pending 2D echo and lipid panel. * Because of low normal Vitamin B12: I started the patient on Vitamin B12 100 0mcg PO. * Psychiatry team is consulted * We'll defer the rest of the medical management to primary team The plan is discussed with the N.P. from primary team. Will continue to follow. Dr. Stern will start neurology service tomorrow A.M. Time with Patient: Less than 30
--- NOTE | 2023-03-31 12:50 | P.CONS ---
History of Present Illness - Reason for Consult Consult date: 03/31/23 ? Brain mass - History of Present Illness The patient is a 63-year-old white female with multiple medical issues. She had been living previously in [place], at a facility, due to a history of CVA/TIA, schizophrenia, and possible dementia. Apparently there had been a change in behavior with the patient being more aggressive, as well as entering other residents syndromes and going through the belongings. She was therefore brought to [place] by her son who lives here. She was seen in the emergency room recently psychiatric evaluation, but had to be discharged home due to insurance issues. She was brought back to the emergency room, as she apparently entered her son's room with a knife in her hand. According to the history provided by him, she has been more forgetful, and behavioral changes have been progressive. The patient has had an extensive workup with imaging, including computed tomography scan of the brain, CT angiogram and MRI. CT brain revealed evidence of bilateral chronic appearing ischemic changes. Carotid Dopplers, and CT angiogram confirmed occlusion of the right ICA, and severe stenosis of the left ICA. MRI showed a 5 mm lesion in the superior right parietal lobe. On Neuro logy evaluation this is felt to show enhancement. Her was some vasogenic edema in the right frontal lobe, but this was actually not related to the aforementioned lesion. Consult was placed due to the possibility of brain mass. On my evaluation the patient appeared to be oriented to self. She was however not able to tell me the date, or the name the president accurately. She appeared to be reasonably oriented to self, stating her age, but today, and son's name accurately. She was also able to state that she was living in [place] previously She denied any prior history of malignancy. She also denied having any headaches, dizziness, visual complaints, nausea vomiting. He stated that she has been smoking a pack a day since her teens. She denied any new respiratory issues, significant pain problems, or difficulty in swallowing. Review of Systems Constitutional: Reports weight loss (About 5-6 pounds according to the patient) Eyes: denies blurred vision, denies pain Ears: deny: decreased hearing, ear discharge, earache, tinnitus Ears, nose, mouth and throat: Denies headache, Denies sore throat Cardiovascular: Denies chest pain, Denies shortness of breath Respiratory: Denies cough Gastrointestinal: Denies abdominal pain, Denies diarrhea, Denies nausea, Denies vomiting Genitourinary: Denies dysuria, Denies hematuria Menstruation: Reports postmenopausal Musculoskeletal: Reports muscle weakness Integumentary: Denies pruritus, Denies rash Neurological: Reports confusion, Reports memory loss Psychiatric: Reports as per HPI, Reports confusion, Reports disorientation, Reports memory loss Endocrine: Reports weight change Hematologic/Lymphatic: Reports as per HPI Past Medical History Past Medical History: CVA/TIA, Dementia Additional Past Medical History / Comment(s): adjusted disorder, cognitive communication deficit, mild cognitive impairment of uncertain or unknown etiology History of Any Multi-Drug Resistant Organisms: None Reported Past Surgical History: Joint Replacement Past Psychological History: Anxiety, Depression Smoking Status: Former smoker Past Alcohol Use History: None Reported Past Drug Use History: None Reported Medications and Allergies Home Medications Medication Instructions Recorded Confirmed Type ARIPiprazole [Abilify] 15 mg PO DAILY 03/11/23 03/26/23 History Benztropine Mesylate [Cogentin] 0.5 mg PO BID 03/11/23 03/26/23 History Citalopram Hydrobromide [CeleXA] 10 mg PO DAILY 03/11/23 03/26/23 History Midodrine HCl [ProAmatine] 10 mg PO AC-TID 03/11/23 03/26/23 History Mirtazapine 7.5 mg PO HS 03/11/23 03/26/23 History Ondansetron [Zofran] 4 mg PO Q6H PRN 03/11/23 03/26/23 History Allergies Allergy/AdvReac Type Severity Reaction Status Date / Time No Known Allergies Allergy Verified 03/26/23 09:16 Physical Exam Vitals: Vital Signs Temp Pulse Resp BP Pulse Ox 03/31/23 07:44 98.1 F 84 16 118/78 97 03/31/23 02:28 98.9 F 83 16 130/82 96 03/30/23 20:17 99.1 F 91 18 137/85 97 03/30/23 20:00 18 03/30/23 14:16 98.5 F 85 18 94/61 99 Intake and Output 03/30/23 03/31/23 03/31/23 22:59 06:59 14:59 Intake Total 120 Balance 120 Intake: Oral 120 Other: Voiding Method Toilet Toilet Diaper # Voids 6 3 1 - Constitutional General appearance: no acute distress - EENT Eyes: EOMI, PERRLA ENT: hearing grossly normal, normal oropharynx - Neck Neck: no lymphadenopathy Thyroid: bilateral: normal size - Respiratory Respiratory: bilateral: CTA - Cardiovascular Rhythm: regular Heart sounds: normal: S1, S2 - Gastrointestinal General gastrointestinal: normal bowel sounds, soft - Integumentary Integumentary: normal - Neurologic Speech is intermittently, although infrequently incoherent. Some intermittent dysarthria Neurologic: CNII-XII intact - Musculoskeletal Musculoskeletal: generalized weakness, strength equal bilaterally - Psychiatric Oriented to self. Results CBC & Chem 7: 03/31/23 06:52 03/31/23 06:52 Labs: Abnormal Lab Results - Last 24 Hours (Table) 03/30/23 03/31/23 03/31/23 Range/Units 16:50 06:52 06:52 RBC 3.61 L (3.80-5.40) m/uL Hgb 11.3 L (11.4-16.0) gm/dL Sodium 136 L (137-145) mmol/L Cholesterol 209.00 H (0.00-200.00) mg/dL LDL Cholesterol, Calc 135.0 H (0.0-131.0) mg/dL Comments: CT angio /carotid doppler report reviewed CT Scan - head: report reviewed MRI - head: report reviewed Assessment and Plan (1) Brain mass Narrative/Plan: Consult was placed because of a possible brain mass. As described on the computed tomography scan and MRI, based on the small size, and other features, this finding is questionable as to whether there is even a mass or not, versus other etiology such as prior ischemia. - Check CT of the chest abdomen and pelvis to evaluate for a possible primary malignancy that could be a source of brain metastasis. If negative, then it would probably be reasonable to repeat MRI in a few weeks, since I would a nticipate that the area would likely be quite difficult to access for a biopsy Current Visit: Yes Status: Acute Code(s): G93.89 - OTHER SPECIFIED DISORDERS OF BRAIN SNOMED Code(s): 176732853 Plan: Defer to the admitting service and other consultants for management of her other medical problems.
[2023-03-31] MEDS: IOPAMIDOL CONTRAST (ORAL USE) VIAL PO PRN ×2 (13:01→14:03)
--- NOTE | 2023-03-31 15:47 | CT ---
EXAMINATION TYPE: CT ChestAbdPelvis w con CT DLP: 650.80 mGycm, Automated exposure control for dose reduction was used. DATE OF EXAM: 03/31/2023 2:50 PM COMPARISON: CTA head and neck the 2022. CLINICAL INDICATION:Female, 63 years old with history of brain mass, concern for metastases. Technique: Multiple axial images of the chest, abdomen, and pelvis were obtained. Two-dimensional cor onal and sagittal reconstructions were obtained. Contrast used:100 mL of Isovue 300 with IV Contrast, Oral contrast used: with Oral Contrast Findings: CHEST: LUNGS/ PLEURA: No evidence of lung mass. Subsegmental atelectasis is noted in the lungs as well as pl eural based scarring. AIRWAY: Patent and unremarkable. HEART: Size within normal limits. MEDIASTINUM: No gross evidence of adenopathy. VASCULATURE: No aortic aneurysm. MUSCULOSKELETAL: No acute osseous abnormalities. Dextrocurvature of the thoracic spine is identified. Remote compression deformity of the T7 vertebral body with less than 25% height loss. SOFT TISSUES/LYMPH NODES: Unremarkable. LOWER NECK: No significant findings. ABDOMEN: ABDOMEN LIVER: Unremarkable GALLBLADDER AND BILE DUCTS: Unremarkable. PANCREAS: Unremarkable. SPLEEN: Unremarkable. ADRENAL GLANDS: Unremarkable. KIDNEYS AND URETERS: No evidence of hydronephrosis or renal calculus. The ureters are unremarkable. PELVIS BLADDER: Unremarkable REPRODUCTIVE: Unremarkable. ABDOMEN & PELVIS STOMACH AND BOWEL: The stomach is prominent with debris noted within, likely related to ingested food material. No evidence of bowel obstruction. PERITONEUM: No evidence of pneumoperitoneum or free fluid. VASCULATURE: Moderate atherosclerotic calcifications are present throughout the abdominal aorta and i ts branches. MUSCULOSKELETAL: No acute osseous abnormalities. S-shaped sclerotic curvature of the thoracic lumbar spine is identified. Left hip prosthesis is identified. LYMPH NODES: No gross evidence for lymphadenopathy. SOFT TISSUE/ABDOMINAL WALL: Unremarkable IMPRESSION: 1. No evidence of acute process or metastatic disease. 2. Remote compression deformity of the T7 vertebral body with less than 25% loss.
--- NOTE | 2023-03-31 17:30 | P.GSCN ---
History of Present Illness Consult date: 03/31/23 History of present illness: Patient is a 63-year-old female with multiple medical issues. Due to her overall clinical issues the history is obtained via the chart and nursing. She previously lived in [place] and due to decline of her mental health, schizophrenia, possible dementia and history of CVA/TIA, it was decided her son brought her to [place] who lives here. There was concern when she showed up in his room overnight with a knife in her hand. Along with these progressive changes of being more forgetful and having behavioral changes she was brought to the ER for further work-up. Extensive work-up was performed did show evidence of right internal carotid artery occlusion with left internal carotid artery stenosis. Past Medical History Past Medical History: CVA/TIA, Dementia Additional Past Medical History / Comment(s): adjusted disorder, cognitive communication deficit, mild cognitive impairment of uncertain or unknown etiology History of Any Multi-Drug Resistant Organisms: None Reported Past Surgical History: Joint Replacement Past Psychological History: Anxiety, Depression Smoking Status: Former smoker Past Alcohol Use History: None Reported Past Drug Use History: None Reported Medications and Allergies Home Medications Medication Instructions Recorded Confirmed Type ARIPiprazole [Abilify] 15 mg PO DAILY 03/11/23 03/26/23 History Benztropine Mesylate [Cogentin] 0.5 mg PO BID 03/11/23 03/26/23 History Citalopram Hydrobromide [CeleXA] 10 mg PO DAILY 03/11/23 03/26/23 History Midodrine HCl [ProAmatine] 10 mg PO AC-TID 03/11/23 03/26/23 History Mirtazapine 7.5 mg PO HS 03/11/23 03/26/23 History Ondansetron [Zofran] 4 mg PO Q6H PRN 03/11/23 03/26/23 History Allergies Allergy/AdvReac Type Severity Reaction Status Date / Time No Known Allergies Allergy Verified 03/26/23 09:16 Surgical - Exam Vital Signs Temp Pulse Resp BP Pulse Ox 98 F 95 20 144/78 99 03/26/23 08:02 03/26/23 08:02 03/26/23 08:02 03/26/23 08:02 03/26/23 08:02 General is a pleasant female in no acute distress. HEENT is normocephalic, atraumatic, poor dentition. Neck is supple, no lymphadenopathy. Lungs are clear bilaterally. Abdomen is soft. Intermittent speech, appears contracted in her upper extremities but then able to move. Oriented to self only. Results - Labs 03/31/23 06:52 03/31/23 06:52 Abnormal Lab Results - Last 24 Hours (Table) 03/30/23 03/31/23 03/31/23 Range/Units 16:50 06:52 06:52 RBC 3.61 L (3.80-5.40) m/uL Hgb 11.3 L (11.4-16.0) gm/dL Sodium 136 L (137-145) mmol/L Cholesterol 209.00 H (0.00-200.00) mg/dL LDL Cholesterol, Calc 135.0 H (0.0-131.0) mg/dL Diabetes panel 03/30/23 03/31/23 Range/Units 16:50 06:52 Sodium 136 L (137-145) mmol/L Potassium 5.0 (3.5-5.1) mmol/L Chloride 103 (98-107) mmol/L Carbon Dioxide 25 (22-30) mmol/L BUN 12 (7-17) mg/dL Creatinine 0.86 (0.52-1.04) mg/dL Glucose 85 (74-99) mg/dL Calcium 9.3 (8.4-10.2) mg/dL Triglycerides 122.00 (0.00-149.00) mg/dL HDL Cholesterol 49.60 (40.00-60.00) mg/dL Calcium panel 03/31/23 Range/Units 06:52 Calcium 9.3 (8.4-10.2) mg/dL Pituitary panel 03/31/23 Range/Units 06:52 Sodium 136 L (137-145) mmol/L Potassium 5.0 (3.5-5.1) mmol/L Chloride 103 (98-107) mmol/L Carbon Dioxide 25 (22-30) mmol/L BUN 12 (7-17) mg/dL Creatinine 0.86 (0.52-1.04) mg/dL Glucose 85 (74-99) mg/dL Calcium 9.3 (8.4-10.2) mg/dL Adrenal panel 03/31/23 Range/Units 06:52 Sodium 136 L (137-145) mmol/L Potassium 5.0 (3.5-5.1) mmol/L Chloride 103 (98-107) mmol/L Carbon Dioxide 25 (22-30) mmol/L BUN 12 (7-17) mg/dL Creatinine 0.86 (0.52-1.04) mg/dL Glucose 85 (74-99) mg/dL Calcium 9.3 (8.4-10.2) mg/dL Assessment and Plan Assessment: Right internal carotid artery occlusion Severe stenosis left internal carotid artery focally on CT scan, ultrasound consistent with 70% stenosis of the internal carotid artery on the left Schizophrenia Plan: Patient does have evidence of asymptomatic left internal carotid artery scarlet nosis. At this time she does not appear to have evidence of symptomatology as she is able to move her 4 extremities and have discourse. There is no evidence of facial droop. Given the numbers, she likely is close to 70% and not greater than 80% on images therefore would forego any aggressive surgical intervention especially given her overall medical comorbidities and further issues at this time. Would continue with carotid surveillance should patient remain a potential candidate for intervention. No intervention indicated at this time.
[2023-03-31] MEDS: ATORVASTATIN 40 MG TAB PO SCH (21:17)
[2023-03-31] MEDS: OLANZapine 5 MG TAB PO SCH (21:17)
[2023-03-31] MEDS: BENZTROPINE MESYLATE 0.5 MG TAB PO SCH (21:17)
--- NOTE | 2023-03-31 21:49 | P.PN ---
Subjective Progress Note Date: 03/31/23 This is a 63-year-old female who presented to the emergency department with son reporting increased issues regarding her advancing dementia along with significant history of schizophrenia with anxiety and depression. Patient was recently here in the ER for psychiatric evaluation and was staying at home with son and has recently moved here from [place]. Patient does not have a primary care provider in this area and family feel unsafe to take the patient home for their safety as well as hers. Patient apparently came at the sun with a knife and was brought here to the emergency department for further evaluation. Patient does have history of CVA/TIA, dementia, schizophrenia, anxiety and depression and has been staying at a facility out of [place] although started having increased aggressive behaviors and going in and out of other resident's rooms and through their belongings. Son was sent home on previous admission 2 weeks ago from the ER with resources as patient continues to have Medicaid insurance through [place] and does have [place] Medicare. Patient does not currently have a primary care provider and will need resources on that as well. Case management is now following an having inpatient case management evaluated the case for possible AFC. PT/OT therapy is being consulted for evaluation. There is a bed available per son at [facility] although needs an official referral and does not currently have a primary care provider. After discussion with case management in the ER there is no bed available at [facility] and patient would need to have Medicaid transferred over here from [place] and Medicaid could take up to [address] of the brain showed chronic appearing periventricular white matter ischemic changes and suspicion of old right basal ganglia in the right frontal lobe as well as considering possible vasogenic edema and consider MRI for further evaluation. CT of the spine showed prominent cervical kyphosis centered at C4 and some degenerative disc changes and will consult neurology and appreciate input and recommendations. Patient was admitted for possible AFC placement with PT/OT and case management consultation. 03/27/2023 Patient is seen and evaluated in follow-up today much more calm and continues with a sitter at the bedside. Sitter reports not eating much although did eat some of her breakfast. Awaiting psychiatry evaluation along with case management/social work following as patient will need medicated here at [place] and also AFC or even possibly [place] psych admission. Patient does have extensive history of schizophrenia with dementia. Adjustments to medications being done and we will continue to monitor closely. MRI of the brain was ordered and pending at this time with neurology following. Patient is afebrile with no reported chest pain or shortness of breath. Would recommend physical therapy daily as patient is significantly weak. Patient is now reporting any nausea or vomiting. Encouraged oral intake and will add supplements as well. 03/28/2023 Patient is seen and evaluated today currently sitting up in the chair awake, alert and oriented 2 much more awake and appropriate and responding with conversation appropriately. Patient does have sitter at the bedside for safety as patient is an elopement risk and will monitor closely and possibly discontinue the sitter. Psychiatry evaluated the patient with adjustments to medications and patient is doing relatively well on these medications. Physical therapy evaluated the patient recommending rehab and awaiting insurance autho rization and accepting facility. Patient is currently afebrile with no reports of chest pain or shortness of breath. Patient tolerating diet with no reported nausea or vomiting. 03/29/2023 Patient is evaluated today resting in bed. No acute complaints. Pt is A and O x 2. EEG was done which was an abnormal routine EEG, there is background slowing suggestive of mild to moderate encephalopathy. Otherwise there is no focal slowing, epileptiform discharges or seizures on the EEG. Pending MRI which will be done today. Patient has been accepted at an [facility] and auth has been started. Neurology following closely. Hemodynamically stable. 03/30/2023 Patient is seen in follow-up today currently sitting up in the chair mentation is improving being followed by neurology along with psychiatry. Patient underwent MRI of the brain which showed a small 5 mm area of diffusion restriction with enhancement on the superior-lateral right parietal lobe finding to small to characterize although may reflect a tiny focus of ischemia and tiny intracranial lesion not excluded recommending short-term follow-up also showing some ICA stenosis recommending carotid Dopplers. Carotid Doppler was obtained showing possible occlusion of the proximal right internal carotid artery and severe greater than 70% stenosis of the left internal carotid artery secondary to severe plaque formation. Neurology continues to undergo workup and has ordered a CT angiogram which is pending. Vascular surgery consult placed and will place the patient on statin therapy. 03/31/2023 Patient is evaluated today resting in bed no acute complaints overnight. Pending vascular consultation. Patient had MRI done and discussed with neurology who is recommending oncology followup of the possible intracranial lesion noted right p arietal lobe vs. tiny focus of ischemia. CT angiography was done in follow up showing occlusion of the right ICA at its origin, severe stenosis of the origin of the left internal carotid artery. Complete filling of the [place] without segmental occlusion, sizable aneurysmsac vascular malformation. Blood work remains stable. Review of Systems Constitutional: Denied any fatigue denied any fever. Cardio vascular: denied any chest pain, palpitations Gastrointestinal: denied any nausea, vomiting, diarrhea Pulmonary: Denied any shortness of breath cough Neurologic denied any new focal deficits All inpatient medications were reviewed and appropriate changes in these medications as dictated in the interval history and assessment and plan. PHYSICAL EXAMINATION: GENERAL: The patient is alert and oriented x2, Well developed, thin built, elderly , awake, less anxious and calm at this time HEENT: Pupils are round and equally reacting to light. EOMI. no scleral icterus. No conjunctival pallor. Normocephalic, atraumatic. No pharyngeal erythema. No th yromegaly. CARDIOVASCULAR: S1 and S2 muffled PULMONARY: diminished breath sounds bilaterally with no wheezing or rhonchi noted. ABDOMEN: soft. Nontender on exam. non-distended, normoactive bowel sounds. No palpable organomegaly. MUSCULOSKELETAL: No joint swelling or deformity. EXTREMITIES: No cyanosis, clubbing, or pedal edema. NEUROLOGICAL: Gross neurological examination did not reveal any focal deficits. Diffuse weakness SKIN: No rashes. Multiple sporadic bruises noted Assessment: Altered mental status, encephalopathy, multifactorial metabolic/toxic encephalopathy, with history of dementia and schizophrenia Vasogenic edema noted on CT of brain with concerns of possible lesion, oncology consulted Occlusion of the proximal right internal carotid artery and severe greater that 70% stenosis of the left internal carotid artery secondary to severe plaque formation as noted on Doppler History of CVA/TIA recent history of left hip arthroplasty in [place] 8 weeks ago History of anxiety/depression former smoker Generalized weakness with gait dysfunction GI prophylaxis DVT prophylaxis Full code Plan: Patient was admitted with consultation to PT/OT therapy as family reports they brought her here from [place] from an [facility] and that they would be able to help her although patient is becoming more aggressive and increasingly confused and was evaluated on previous admission 2 weeks ago by psychiatry and discharged home with resources although patient does not have a PCP and son did not follow- up. Son is working on obtaining medicated here and social work following an in [facility] has accepted the patient awaiting insurance authorization Psychiatry evaluating the patient and making adjustments to medications. Ativan scheduled added per psychiatry CTA reveals occuled right ICA and severe stenosis left ICA Statin therapy increased to 80 mg daily and also consulted oncology with concerns of possible brain lesion Vascular surgery consulted and appreciate input recommendations regarding Doppler results Encourage frequent reorientation, safety technician removed from bedside today. Awaiting further neurology workup and vascular surgery consult as well as oncology consult The impression and plan of care has been dictated by Yoana Reddy, Nurse Practitioner as directed. Dr. Saji MD I have performed a history and physical examination and medical decision making of this patient, discussed the same with the dictator, and agree with the dictators assessment and plan as written, documented as a scribe. Based on total visit time, I have performed more than 50% of this visit. Objective - Vital Signs Vital signs: Vital Signs Temp 98.1 F 03/31/23 07:44 Pulse 84 03/31/23 07:44 Resp 16 03/31/23 07:44 BP 118/78 03/31/23 07:44 Pulse Ox 97 03/31/23 07:44 FiO2 Intake & Output 03/30/23 03/31/23 03/31/23 18:59 06:59 18:59 Intake Total 120 Balance 120 Intake: Oral 120 Other: Voiding Method Toilet Toilet Toilet Bedside Commode Diaper Diaper # Voids 6 3 1 - Labs CBC & Chem 7: 03/31/23 06:52 03/31/23 06:52 Labs: Abnormal Lab Results - Last 24 Hours (Table) 03/30/23 03/31/23 03/31/23 Range/Units 16:50 06:52 06:52 RBC 3.61 L (3.80-5.40) m/uL Hgb 11.3 L (11.4-16.0) gm/dL Sodium 136 L (137-145) mmol/L Cholesterol 209.00 H (0.00-200.00) mg/dL LDL Cholesterol, Calc 135.0 H (0.0-131.0) mg/dL
[2023-04-01] MEDS: levETIRAcetam IV 500 MG/5 ML VIAL IVP SCH ×2 (05:12→18:18)
[2023-04-01] MEDS: LORazepam 0.5 MG TAB PO SCH ×2 (08:43→21:07)
[2023-04-01] MEDS: CITALOPRAM HYDROBROMIDE 10 MG TAB PO SCH (08:43)
[2023-04-01] MEDS: PANTOPRAZOLE 40 MG TABLET PO SCH (08:43)
[2023-04-01] MEDS: CYANOCOBALAMIN 500 MCG TAB PO SCH (08:43)
--- NOTE | 2023-04-01 10:39 | P.PN ---
Subjective Progress Note Date: 04/01/23 Principal diagnosis: Carotid stenosis Patient is seen and examined today for follow-up. Patient continues to have some behavioral issues and was found naked in another patient's room last night. Psychiatry is on consult. No reported focal deficits. No other acute changes through the night. Patient denies any weakness in her upper or lower extremities. No difficulty with speech. No visual changes. Objective - Vital Signs Vital signs: Vital Signs Temp 98.4 F 04/01/23 07:40 Pulse 70 04/01/23 07:40 Resp 18 04/01/23 07:40 BP 151/94 04/01/23 07:40 Pulse Ox 95 04/01/23 07:40 FiO2 Intake & Output 03/31/23 04/01/23 04/01/23 18:59 06:59 18:59 Intake Total 500 Balance 500 Intake: Oral 500 Other: Voiding Method Toilet Toilet # Voids 8 3 # Bowel Movements 1 - Exam General appearance: The patient is alert, oriented to self, appears in no acute distress. HET: Head is normocephalic and atraumatic. Pupils are equal and reactive. Neck: Supple. Abdomen: Soft, nondistended. Extremities: Normal skin color and turgor. Neurological: No focal deficits. Alert and oriented to self only. - Labs CBC & Chem 7: 03/31/23 06:52 03/31/23 06:52 Assessment and Plan Assessment: 1. Right internal carotid artery occlusion 2. Severe stenosis left internal carotid artery focally on computed tomography scan, ultrasound consistent with 70% stenosis of internal carotid artery on left 3. Schizophrenia Plan: Patient does not have evidence of asymptomatic left internal carotid artery stenosis. At this time she does not appear to have evidence of symptomatology as she is able to move her 4 extremities and have discourse. There is no evidence of facial droop. Given the numbers, she likely is close to 70% and not greater than 80% on images therefore would forego any aggressive surgical intervention especially given her overall medical comorbidities and further issues at this time. Would continue with carotid surveillance should patient remain a potential candidate for intervention. No intervention indicated at this time, recommend medical management. I spoke with patient's son Reddy Mercado, updated plan for outpatient follow-up for his mother for carotid surveillance. At this time patient with asymptomatic carotid stenosis continue with medical therapy. He agreed that he did not recommend any aggressive intervention at this time. However he is willing to follow-up upon discharge for continued carotid surveillance. Thank you for this consultation. The impression and plan of care has been dictated as directed. I performed a history and examination of this patient, discussed the same with the dictator. I agree with the dictator's note ,documented as a scribe. Any additional findings or plans will be noted.
[2023-04-01] MEDS: amLODIPine 10 MG TAB PO SCH (11:00)
--- NOTE | 2023-04-01 13:22 | P.PN ---
Subjective Progress Note Date: 04/01/23 Principal diagnosis: At today's visit patient is sitting in bedside chair, son at bedside. Patient is somnolent. Son states that his mother recently moved here from [place] but since she's been home and that her mentation waxes and wanes, some days she is much more alert and other days she is like today with increased lethargy. Objective - Vital Signs Vital signs: Vital Signs Temp 98.9 F 04/01/23 12:47 Pulse 107 H 04/01/23 12:47 Resp 18 04/01/23 12:47 BP 123/77 04/01/23 12:47 Pulse Ox 97 04/01/23 12:47 FiO2 Intake & Output 03/31/23 04/01/23 04/01/23 18:59 06:59 18:59 Intake Total 500 Balance 500 Intake: Oral 500 Other: Voiding Method Toilet Toilet # Voids 8 3 # Bowel Movements 1 - Constitutional General appearance: Present: average body habitus, no acute distress - EENT Eyes: Present: anicteric sclerae, EOMI - Respiratory Details: breathing even and unlabored - Cardiovascular Details: skin warm and dry - Integumentary Integumentary: Absent: cyanotic, jaundiced - Neurologic Neurologic Comment(s): somnolent - Musculoskeletal Musculoskeletal: Present: generalized weakness - Labs CBC & Chem 7: 03/31/23 06:52 03/31/23 06:52 Assessment and Plan (1) Brain mass Current Visit: Yes Status: Acute Priority: High Code(s): G93.89 - OTHER SPECIFIED DISORDERS OF BRAIN SNOMED Code(s): 501066116 Plan: Brain mass: -Consult was placed because of a possible brain mass. As described on the computed tomography scan and MRI, based on the small size, and other features, this finding is questionable as to whether there is even a mass or not, versus other etiology such as prior ischemia. - Check CT of the chest abdomen and pelvis to evaluate for a possible primary malignancy that could be a source of brain metastasis. CT scan revealed no evidence of acute process or metastatic disease with remote compression deformity of the T7 vertebral body. -Would recommend repeat brain MRI in the next 2-3 weeks for reevaluation. If noted area remains a concern and/or progression of symptoms would recommend e valuation by neurosurgery, however based area and size, the area would likely be quite difficult to access for a biopsy Plan: Defer to the admitting service and other consultants for management of her other medical problems.
[2023-04-01] MEDS ORDERED: OLANZapine 5 MG TAB PO PRN (13:47)
--- NOTE | 2023-04-01 13:52 | P.PN ---
Progress Note - Text Progress Note Date: 04/01/23 Interval History: Patient was seen today for psychiatric follow-up regarding patient's schizophr enia and major neurocognitive disorder. Patient was seen standing beside her bed and appeared to be wandering aimlessly in the room. She was agreeable to speak to property underwriter briefly. She attended answer some questions however was difficult at times to understand. Her speech is improving mildly since last observation. She continues to be fairly concrete and constricted. She denied any overnight complaints. States that she is sleeping fairly. According to nurse patient has been wandering at night times and not sleeping well and acting bizarre. Patient states that she knows she is in the hospital however does not know which one, does not know today's date and she knew her full name. She is denying any depression or anxiety. Continues to be bizarre in her behaviors and illogical at times. At this time patient denies any suicidal or homical ideations, intent or plan. Patient denies any auditory, visual hallucinations. Patient denies any side effects from the medications and has been compliant with meds. Mental Status Exam: General Appearance: Patient appears to be thin, rudolph hair, stated age is alert, suspicious, bizarre. standing beside her bed. Patient appears to have fair h ygiene and grooming wearing hospital gown with intense eye contact. Behavior: Patient is calmly standing, without any agitated behavior. attempts to cooperate. mildly disorganized Speech: Patient's speech is incoherent namely and mumbling. concrete Mood/Affect: Patient reports their mood is "ok", affect is congruent and constricted Suicidality/Homicidality: Patient denies having any suicidal or homicidal ideation intent or plan. Perceptions: Patient denies any visual hallucinations and denies any auditory hallucinations Though content/process: [place], povery of content. not endorsing paranoia. Memory and concentration: AOX1-2, only follow some commands, improving mildly Judgment and insight: Chronically limited/poor, mildly improving. IMPRESSIONS: Schizophrenia Major neurocognitive disorder PLAN: -Patient DOES NOT have decision making capacity at this time and is unable to reason through and communicate/appreciate the risks, benefits and alternatives to treatment. -Delirium precautions recommended with patient including - avoiding use of narcotics and [employer]CE sedatives, limit anticholinergic medications when possible, frequent re-orientation, minimize use of restraints, open window shades during the day and close them at night -Would recommend the following medication changes/additions: D/c Cogentin, increase Zyprexa 7.5 mg daily at bedtime or psychosis/mood stabilizati on/insomnia, consider increasing to 10 mg qhs if patient continues to have difficulties with sleep and agitation. Zyprexa 3 times a day when necessary for agitation/psychosis/insomnia. -Communicated plan to patient's nurse. PACO/CM on board to discuss senior care placement options. -Will continue to follow along as needed. -Please contact with any questions.
--- NOTE | 2023-04-01 17:44 | CA ---
Transthoracic Echo Report Name: Bessy Mercado Age: 63 Gender: F : 1960 Exam Date: 04/01/2023 15:25 Exam Location: [place] Echo Ht (in): 64 Wt (lb): 160 Ordering Physician: Milton Dennison MD Attending/Referring Phys: Location And Measurement Technician Sharmin Samuel [facility] Procedure CPT: Indications: stroke Cardiac Hx: Technical Quality: Technically difficult study Contrast 1: Total Dose (mL): Contrast 2: Total Dose (mL): MEASUREMENTS (Male / Female) Normal Values 2D ECHO LV Diastolic Diameter PLAX 3.7 cm 4.2 - 5.9 / 3.9 - 5.3 cm LV Systolic Diameter PLAX 2.1 cm IVS Diastolic Thickness 1.0 cm 0.6 - 1.0 / 0.6 - 0.9 cm LVPW Diastolic Thickness 1.0 cm 0.6 - 1.0 / 0.6 - 0.9 cm LV Relative Wall Thickness 0.5 LVOT Diameter 2.0 cm Ascending Aorta Diameter 3.4 cm M-MODE Aortic Root Diameter MM 3.0 cm LA Systolic Diameter MM 3.5 cm LA Ao Ratio MM 1.1 AV Cusp Separation MM 1.7 cm DOPPLER AV Peak Velocity 142.1 cm/s AV Peak Gradient 8.1 mmHg AV Mean Velocity 102.0 cm/s AV Mean Gradient 4.5 mmHg AV Velocity Time Integral 26.5 cm LVOT Peak Velocity 95.9 cm/s LVOT Peak Gradient 3.7 mmHg LVOT Velocity Time Integral 17.7 cm LVOT Stroke Volume 58.1 cm??? LVOT Stroke Volume Index 32.7 ml/m??? LVOT Cardiac Index 2891.0 cm???/min???m??? AV Area Cont Eq vti 2.2 cm??? AV Area Cont Eq pk 2.2 cm??? Mitral E Point Velocity 69.7 cm/s Mitral A Point Velocity 63.7 cm/s Mitral E to A Ratio 1.1 MV Deceleration Time 186.3 ms LV E' Lateral Velocity 11.9 cm/s Mitral E to LV E' Lateral Ratio 5.8 LV E' Septal Velocity 5.8 cm/s Mitral E to LV E' Septal Ratio 12.0 Right Atrial Pressure 8.0 mmHg FINDINGS Left Ventricle Mildly increased posterior wall thickness. Small left ventricular cavity. Normal left ventricular systolic function with no obvious regional wall motion abnormalities. Left ventricular ejection fraction is estimated at 55-60%. Right Ventricle Normal right ventricular size. Right Atrium Normal right atrial size. Left Atrium Normal left atrial size. Mitral Valve Structurally normal mitral valve. Mitral valve thickened. No mitral regurgitation. Aortic Valve Aortic valve not well visualized. No aortic regurgitation. Tricuspid Valve Structurally normal tricuspid valve. No tricuspid regurgitation. Pulmonic Valve Pulmonic valve not well visualized. Pericardium No pericardial effusion. Aorta Normal size aortic root and proximal ascending aorta. CONCLUSIONS Normal LV systolic function Previewed by: Dr. Dale Franklin MD (Electronically Signed) Final Date: 01 April 2023 17:44
[2023-04-01] MEDS: MELATONIN 5 MG TABLET PO SCH (21:07)
[2023-04-01] MEDS: ATORVASTATIN 40 MG TAB PO SCH (21:07)
[2023-04-01] MEDS: OLANZapine 7.5 MG TAB PO SCH (21:07)
[2023-04-02] MEDS: levETIRAcetam IV 500 MG/5 ML VIAL IVP SCH (05:18)
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
[2023-04-02] MEDS: CITALOPRAM HYDROBROMIDE 10 MG TAB PO SCH (08:19)
[2023-04-02] MEDS: PANTOPRAZOLE 40 MG TABLET PO SCH (08:19)
[2023-04-02] MEDS: amLODIPine 10 MG TAB PO SCH (08:19)
[2023-04-02] MEDS: CYANOCOBALAMIN 500 MCG TAB PO SCH (08:19)
[2023-04-02] MEDS: LORazepam 0.5 MG TAB PO SCH ×3 (08:19→22:38)
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
[2023-04-02] MEDS ORDERED: ASPIRIN 81 MG PO STA (11:39)
[2023-04-02 14:29] VITALS: BMI 27.4
[2023-04-02] MEDS: OLANZapine 7.5 MG TAB PO SCH (20:37)
[2023-04-02] MEDS: MELATONIN 5 MG TABLET PO SCH (20:37)
[2023-04-02] MEDS: ATORVASTATIN 40 MG TAB PO SCH (20:37)
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
[2023-04-03] MEDS: LORazepam 0.5 MG TAB PO SCH (10:09)
[2023-04-03] MEDS: ASPIRIN 81 MG PO SCH (10:13)
[2023-04-03] MEDS: PANTOPRAZOLE 40 MG TABLET PO SCH (10:13)
[2023-04-03] MEDS: amLODIPine 10 MG TAB PO SCH (10:13)
[2023-04-03] MEDS: CYANOCOBALAMIN 500 MCG TAB PO SCH (10:13)
[2023-04-03] MEDS: CITALOPRAM HYDROBROMIDE 10 MG TAB PO SCH (10:13)
--- NOTE | 2023-04-03 19:31 | P.PN ---
Subjective Progress Note Date: 04/03/23 This is a 63-year-old female who presented to the emergency department with son reporting increased issues regarding her advancing dementia along with significant history of schizophrenia with anxiety and depression. Patient was recently here in the ER for psychiatric evaluation and was staying at home with son and has recently moved here from [place]. Patient does not have a primary care provider in this area and family feel unsafe to take the patient home for their safety as well as hers. Patient apparently came at the sun with a knife and was brought here to the emergency department for further evaluation. Patient does have history of CVA/TIA, dementia, schizophrenia, anxiety and depr ession and has been staying at a facility out of [place] although started having increased aggressive behaviors and going in and out of other resident's rooms and through their belongings. Son was sent home on previous admission 2 weeks ago from the ER with resources as patient continues to have Medicaid insurance through [place] and does have [place] Medicare. Patient does not currently have a primary care provider and will need resources on that as well. Case management is now following an having inpatient case management evaluated the case for possible AFC. PT/OT therapy is being consulted for evaluation. There is a bed available per son at [facility] although needs an official referral and does not currently have a primary care provider. After discussion with case management in the ER there is no bed available at [facility] and patient would need to have Medicaid transferred over here from [place] and Medicaid could take up to [address] of the brain showed chronic appearing periventricular white matter ischemic changes and suspicion of old right basal ganglia in the right frontal lobe as well as considering possible vasogenic edema and consider MRI for further evaluation. CT of the spine showed prominent cervical kyphosis centered at C4 and some degenerative disc changes and will consult neurology and appreciate input and recommendations. Patient was admitted for possible AFC placement with PT/OT and case management consultation. 03/27/2023 Patient is seen and evaluated in follow-up today much more calm and continues with a sitter at the bedside. Sitter reports not eating much although did eat some of her breakfast. Awaiting psychiatry evaluation along with case management/social work following as patient will need medicated here at [place] and also AFC or even possibly [facility] psych admission. Patient does have extensive history of schizophrenia with dementia. Adjustments to medications being done and we will continue to monitor closely. MRI of the brain was ordered and pending at this time with neurology following. Patient is afebrile with no reported chest pain or shortness of breath. Would recommend physical therapy daily as patient is significantly weak. Patient is now reporting any nausea or vomiting. Encouraged oral intake and will add supplements as well. 03/28/2023 Patient is seen and evaluated today currently sitting up in the chair awake, alert and oriented 2 much more awake and appropriate and responding with conversation appropriately. Patient does have sitter at the bedside for safety as patient is an elopement risk and will monitor closely and possibly discontinue the sitter. Psychiatry evaluated the patient with adjustments to medications and patient is doing relatively well on these medications. Physical therapy evaluated the patient recommending rehab and awaiting insurance auth orization and accepting facility. Patient is currently afebrile with no reports of chest pain or shortness of breath. Patient tolerating diet with no reported nausea or vomiting. 03/29/2023 Patient is evaluated today resting in bed. No acute complaints. Pt is A and O x 2. EEG was done which was an abnormal routine EEG, there is background slowing suggestive of mild to moderate encephalopathy. Otherwise there is no focal slowing, epileptiform discharges or seizures on the EEG. Pending MRI which will be done today. Patient has been accepted at an [facility] and auth has been started. Neurology following closely. Hemodynamically stable. 03/30/2023 Patient is seen in follow-up today currently sitting up in the chair mentation is improving being followed by neurology along with psychiatry. Patient underwent MRI of the brain which showed a small 5 mm area of diffusion restriction with enhancement on the superior-lateral right parietal lobe finding to small to characterize although may reflect a tiny focus of ischemia and tiny intracranial lesion not excluded recommending short-term follow-up also showing some ICA stenosis recommending carotid Dopplers. Carotid Doppler was obtained showing possible occlusion of the proximal right internal carotid artery and severe greater than 70% stenosis of the left internal carotid artery secondary to severe plaque formation. Neurology continues to undergo workup and has ordered a CT angiogram which is pending. Vascular surgery consult placed and will place the patient on statin therapy. 03/31/2023 Patient is evaluated today resting in bed no acute complaints overnight. Pending vascular consultation. Patient had MRI done and discussed with neurology who is recommending oncology followup of the possible intracranial lesion noted right parietal lobe vs. tiny focus of ischemia. CT angiography was done in follow up showing occlusion of the right ICA at its origin, severe stenosis of the origin of the left internal carotid artery. Complete filling of the [place] without segmental occlusion, sizable aneurysmsac vascular malformation. Blood work remains stable. 04/01/2023 Patient is seen and evaluate and follow this morning currently up and walking the halls with standby assistance. Patient continues to be weak and would benefit from ECF her strength and mobility this patient has very unsteady gait although insurance company has denied authorization along with peer to peer review recommending a long-term placement facility or returning home with family and having home care and rehab in the outpatient setting. Patient undergoing further workup with oncology and vascular surgery following. There was significant stenosis of the ICA recommending statin therapy and no plans for immediate intervention. Oncology was consulted and concerns for this lesion on MRI of the brain recommending outpatient follow-up with further MRI in one month for reevaluation. CT abdomen chest was negative for any lesions. Patient is currently afebrile with no reports of chest pain or shortness of breath. Patient is tolerating diet with no reported nausea or vomiting.Social work following and working on discharge planning. 04/02/2023 Patient is seen in follow-up today has been up and walking continues with unsteady gait. Vascular surgery has evaluated the patient recommending outpatient therapy. Oncology is evaluated with concern for possible mass in the brain and recommending follow-up MRI in the next month or so. Neurology following recommending aspirin which has been started. Social work following and has made multiple other referrals to facility which are pending. Patient Medicaid is now active in [place]. Patient is afebrile with no reported chest pain or shortness of breath. Patient is tolerating diet and reported nausea or vomiting. 04/03/2023 Patient is seen in follow-up today with no acute overnight issues. Patient is stable for discharge awaiting and accepting ECF. Medicaid has been transitioned over to [place] and awaiting accepting facility. Patient is afebrile with no reported chest pain or shortness of breath. Patient was seen and evaluated by psychiatry a few days ago and did place on scheduled Ativan although patient has not been taking and will discontinue. Patient was extremely lethargic while taking and will continue other current regimen. No reported chest pain or shortness of breath, tolerating diet with no reported nausea or vomiting. Patient has been taking walks with assistance in the halls frequently throughout the day. Review of systems: Constitutional: Denied any fatigue denied any fever. Cardio vascular: denied any chest pain, palpitations Gastrointestinal: denied any nausea, vomiting, diarrhea Pulmonary: Denied any shortness of breath cough Neurologic denied any new focal deficits All inpatient medications were reviewed and appropriate changes in these medications as dictated in the interval history and assessment and plan. PHYSICAL EXAMINATION: GENERAL: The patient is alert and oriented x2, Well developed, thin built, elderly , awake, and calm at this time HEENT: Pupils are round and equally reacting to light. EOMI. no scleral icterus. No conjunctival pallor. Normocephalic, atraumatic. No pharyngeal erythema. No thyromegaly. CARDIOVASCULAR: S1 and S2 muffled PULMONARY: diminished breath sounds bilaterally with no wheezing or rhonchi noted. ABDOMEN: soft. Nontender on exam. non-distended, normoactive bowel sounds. No palpable organomegaly. MUSCULOSKELETAL: No joint swelling or deformity. EXTREMITIES: No cyanosis, clubbing, or pedal edema. NEUROLOGICAL: Gross neurological examination did not reveal any focal deficits. Diffuse weakness SKIN: No rashes. Multiple sporadic bruises noted Assessment: Altered mental status, encephalopathy, multifactorial metabolic/toxic encephalo leydi, with history of dementia and schizophrenia Vasogenic edema noted on CT of brain with concerns of possible lesion, oncology recommending repeat imaging in 1 month Occlusion of the proximal right internal carotid artery and severe greater that 70% stenosis of the left internal carotid artery secondary to severe plaque formation as noted on Doppler History of CVA/TIA recent history of left hip arthroplasty in [place] 8 weeks ago History of anxiety/depression former smoker Generalized weakness with gait dysfunction GI prophylaxis DVT prophylaxis Full code Plan: Patient continue working with physical therapy and frequent ambulation Social work following working on accepting facilities. Medicaid has been transitioned to [place] from [place] and awaiting accepting facility. Multiple medical consultations have evaluated the patient recommending outpatient follow-up with no plans for intervention at this time Continue current medication regimen other than scheduled Ativan and will discontinue. Encouraged increased activity as tolerated Encouraged oral intake Patient to follow-up with oncology outpatient as well as vascular surgery and neurology with plans of repeat MRI in one month and will continue statin and aspirin therapy at this time. The impression and plan of care has been dictated by Pinky Daniels, nurse practitioner as directed. Dr. Saji MD I have performed a history and examination and MDM of this patient, discussed the same with the dictator, and agree with the dictator's assessment and plan as written ,documented as a scribe. Based on total visit time, I have performed more than 50% of the visit. Any additional findings or plans will be noted. Objective - Vital Signs Vital signs: Vital Signs Temp 98.9 F 04/03/23 12:00 Pulse 95 04/03/23 12:00 Resp 18 04/03/23 12:00 BP 139/79 04/03/23 12:00 Pulse Ox 100 04/03/23 12:00 FiO2 Intake & Output 04/03/23 04/03/23 04/04/23 06:59 18:59 06:59 Other: Voiding Method Toilet Toilet # Voids 2 4 - Labs CBC & Chem 7: 03/31/23 06:52 03/31/23 06:52
[2023-04-03] MEDS: OLANZapine 7.5 MG TAB PO SCH (20:26)
[2023-04-03] MEDS: MELATONIN 5 MG TABLET PO SCH (20:26)
[2023-04-03] MEDS: ATORVASTATIN 40 MG TAB PO SCH (20:26)
--- NOTE | 2023-04-03 20:42 | P.PN ---
Subjective Progress Note Date: 04/03/23 04/03/2023: Patient was seen for a follow-up. Patient was sitting on the commode. Offers no complaints. Spoke to the nurse. Patient awaiting placement in a locked down senior living facility. No new concerns. 04/02/2023: Patient was initially seen by Dr. Milton Dennison. Please refer to his note for details. Patient is a 63-year-old female who presents with altered mental status. Patient has history of psychiatric disorder as well. Patient has a small area of edema in the right frontal region on CT. MRI of the brain showed enhancement right parietal but reported as a possible stroke. Patient has vascular surgery on board because of carotid stenosis. When I saw the patient, patient is standing by the bedside, pacing. Patient denies headache, no dizziness, no numbness or tingling, any strokelike symptoms, any weakness, slurred speech facial droop or any headache. However it appears that she is quite confused as well. Patient has a strong smell of urine in the room. Some of the workup during this hospital visit consisted of: Serum alcohol: Less than 10 Sodium is 136, calcium is 8.7, AST ALT and the creatinine is within normal limits Vitamin B12: 321 Folate: 14.50 Ammonia level is <9. CT of the head is reported as chronic appearing periventricular white matter ischemic changes. Suspicious of old right basal ganglia. Right basal ganglia periventricular white matter changes in the right frontal lobe are lower density than elsewhere, consider possible vasogenic edema. Contrast MRI is recommended for additional evaluation. Personally reviewed the CT of the head and it's more prominent of hypodensity over the right frontal that's adjacent to the right lateral ventricle CT cervical spine is reported as prominent cervical kyphosis centered at C4 can be positional or related to muscle spasm. Degenerative disc changes. Upper cervical spine for mental narrowing due to on "vertebral joint hypertrophy. No acute fracture per Routine EEG is abnormal. Background slowing suggestive of mild to moderate encephalopathy. Otherwise there is no focal slowing, epileptiform discharges or seizure in the EEG. MR the brain is reported as small 5 mm area of diffusion restriction with enhancement superior lateral right parietal lobe. Finding is too small to characterize. May reflect a tiny focus ischemia. Tiny intracranial lesion not excluded would recommend a short follow-up 1 month MRI with contrast to determine finding resolves. Degenerative and extensive remote ischemic changes. I personally reviewed MRI, and appears small area of ischemia in the right parietal cortical region. Carotid duplex: It is reported as possible occlusion of the proximal right internal carotid artery. Superior greater than 70% stenosis of left internal carotid artery surgery due to severe plaque formation. CTA head and neck: It is reported as occlusion of the right ICA at its origin. Severe stenosis of the origin of the left ICA. Complete filling of the [place] with without segment occlusion, sizable aneurysm size vascular motivation, see above. In the body they reported it is reported that there is no sizable aneurysm sac or vascular malformation. Objective - Vital Signs Vital signs: Vital Signs Temp 98.9 F 04/03/23 12:00 Pulse 95 04/03/23 12:00 Resp 18 04/03/23 12:00 BP 139/79 04/03/23 12:00 Pulse Ox 100 04/03/23 12:00 FiO2 Intake & Output 04/03/23 04/03/23 04/04/23 06:59 18:59 06:59 Other: Voiding Method Toilet Toilet # Voids 2 4 - Exam 04/03/2023: Patient is alert and awake. Examination deferred. 04/02/2023: On examination patient is alert and awake. She is standing, pacing, She mumbles, very difficult to descend, only one time I was able to understand when she said "I have no idea" when I asked about the building she is in. Regarding the month, patient states it's Saturday and the year is 2002. Patient able to name fingers, but not the knuckles. Patient has mild left facial asymmetry. Her visual ortega appears full, although sometimes she neglects the left side. Tongue protrudes the midline. No pronator drift and there is no ataxia for [id number] testing. Her gait appears stable although she is pacing. - Labs CBC & Chem 7: 03/31/23 06:52 03/31/23 06:52 Assessment and Plan Assessment: This is a 63-year-old woman with history of dementia, schizophrenia who has moved from [facility] to [place] her son has been taking care of her while she made that moved to [place] but feels it hard to take care of her. It seems she had a fall with bruises all over the face. She's been having worsening of confusion and the recently came to her son's room with a knife. CT head shows right basal ganglia and periventricular white matter changes in the right frontal lobe are lower density than elsewhere, consider vasogenic edema. Encephalopathy: Rule out brain mass especially with ?suspicion of vasogenic edema over the right frontal region on CT head. On MRI has small focal enhancement of right fronto/parietal at cortex region but does have ?edema near right frontal near anterior lateral horn ventricle and no enhancement. Per ra diologist may reflect tiny ischemia but I am concerned about brain mass. --mentation drastically improved compared. Possible occlusion right ICA and >70% stenosis of left ICA on carotid duplex. On the CTA there is also occlusion of the right ICA and severe stenosis of the origin of left ICA. Low normal vitamin B12 321. Underlying history of dementia History of schizophrenia Plan: * MR the brain is reported as small 5 mm area of diffusion restriction with enhancement superior lateral right parietal lobe. Finding is too small to characterize. May reflect a tiny focus ischemia. Tiny intracranial lesion not excluded would recommend a short follow-up 1 month MRI with contrast to determine finding resolves. Degenerative and extensive remote ischemic changes. I personally reviewed MRI, and appears small area of cortical infarct. Significant small vessel disease seen in confluent bilateral subcortical region. Evidence of old encephalomalacia in the right frontal periventricular white matter. I reviewed MRI of the brain with Dr. Gale in detail as well. He agreed, and it appears small vertical infarct. The enhancement was not clearly seen on coronal post contrast images and it appeared more of a blood vessel, rather than actual enhancement. No definite evidence of mass. * We will discontinue Keppra, as they is no evidence of mass lesion. EEG did not reveal any epileptiform activity. * Carotid duplex: It is reported as possible occlusion of the proximal right internal carotid artery. Severe, greater than 70% stenosis of left internal carotid artery due to severe plaque formation. On CTA it also reports occlusion of right ICA and severe stenosis of left ICA. Vascular surgery on board. Recommending medical management. * Patient was not taking any antiplatelet medication at home. We will load with aspirin 324 mg 1 and then start aspirin 81 mg daily and continue indefinitely. Avoid DAP because of fall risk. * No seizure or discharges on the EEG. * 2D echo revealed normal left ventricular systolic function. EF is 55-60%. Small left ventricular cavity. Normal left atrial size. No embolic source. * Lipid panel with cholesterol 209, LDL 135, HDL 49 and triglycerides 122. Continue Lipitor 40 mg daily. * Hemoglobin A1c normal 5.6. * Blood pressure is well controlled. * Because of low normal Vitamin B12: Dr. Dennison started the patient on Vitamin B12 1000mcg PO. * Psychiatry team is consulted * We'll defer the rest of the medical management to primary team * Neurologically clear for transfer to long-term facility.
[2023-04-04] MEDS: amLODIPine 10 MG TAB PO SCH (08:31)
[2023-04-04] MEDS: PANTOPRAZOLE 40 MG TABLET PO SCH (08:31)
[2023-04-04] MEDS: ASPIRIN 81 MG PO SCH (08:31)
[2023-04-04] MEDS: CITALOPRAM HYDROBROMIDE 10 MG TAB PO SCH (08:31)
[2023-04-04] MEDS: CYANOCOBALAMIN 500 MCG TAB PO SCH (08:31)
[2023-04-04] MEDS: OLANZapine 7.5 MG TAB PO SCH (20:42)
[2023-04-04] MEDS: MELATONIN 5 MG TABLET PO SCH (20:42)
[2023-04-04] MEDS: ATORVASTATIN 40 MG TAB PO SCH (20:42)
[2023-04-04 21:35] VITALS: RESP 18
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
[2023-04-05] MEDS: ACETAMINOPHEN TAB 325 MG TAB PO PRN (08:13)
[2023-04-05] MEDS: ASPIRIN 81 MG PO SCH (08:14)
[2023-04-05] MEDS: PANTOPRAZOLE 40 MG TABLET PO SCH (08:14)
[2023-04-05] MEDS: amLODIPine 10 MG TAB PO SCH (08:14)
[2023-04-05] MEDS: CITALOPRAM HYDROBROMIDE 10 MG TAB PO SCH (08:14)
[2023-04-05] MEDS: CYANOCOBALAMIN 500 MCG TAB PO SCH (08:14)
[2023-04-05 08:28] VITALS: BP 117/71; PULSE 116; TEMP 99.2
--- NOTE | 2023-04-05 10:09 | P.DS ---
Providers Date of admission: 03/26/23 13:34 Expected date of discharge: 04/05/23 Attending physician: Dale Mcbride MD Consults: 03/26/23 12:31 Consult Physician Urgent Consulting Provider: Joshua Cartwright Consult Reason/Comments: Progression of schizophrenia vs dementia Do you want consulting provider notified?: Already Contacted 03/26/23 13:46 Consult Physician Routine Consulting Provider: Milton Dennison Consult Reason/Comments: Abnormal CT brain findings Do you want consulting provider notified?: Yes 03/30/23 13:30 Consult Physician Urgent Consulting Provider: Delores Mccloud Consult Reason/Comments: right ICA occlusion, left greater than 70% stenosis for evaluation Do you want consulting provider notified?: Yes 03/30/23 15:42 Consult Physician Routine Consulting Provider: Sharan Ulloa Consult Reason/Comments: right small ?brain mass. 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 Patient will follow-up with Dr. Cancino in the outpatient setting upon discharge. Patient is to also follow-up with [facility] as well as neurology and vascular surgery outpatient as scheduled. Patient does need follow-up MRI in one month to reevaluate vasogenic edema noted on MRI this admission per oncology and neurology. Total time taken is greater than 35 minutes. Hospital course This is a 63-year-old female who was recently admitted with increased confusion and altered mentation with significant history of dementia and schizophrenia. Patient was recently moved from [place] by son to live with him although becoming increasingly aggressive and more confused and was brought here for possible ECF for AFC placement. Patient was seen and evaluated by neurology along with psychiatry and vascular surgery and oncology underwent extensive workup showing significant ICA stenosis although no surgical interventions planned recommending statin and aspirin therapy and outpatient follow-up. Patient also had an MRI of the brain which shows some vasogenic edema with concerns of possible lesion although oncology evaluated does not feel this is a brain metastasis and recommending repeat MRI in one month. Neurology evaluating as well recommending outpatient follow-up with neurologist. Patient to follow- up with [facility] outpatient as well. Patient has been cleared by consultations for discharge. Please refer to other consultation notes for further HPI. Patient recently was living in [place] as mentioned previously at an [facility] and did have a fall and underwent left hip arthroplasty approximately 9 weeks ago. Patient with weakness of evaluated by PT/OT therapy recommending rehab. Son is working on obtaining guardianship here in [place] and Medicaid was recently just switched from [place] to [place] this week as well. Currently no reports of chest pain, shortness of breath, or palpitations. Patient is afebrile. No reports of nausea or vomiting and patient is tolerating diet. Patient will be going to [place] [facility] today. Guarded prognosis Physical exam: Gen: This is a 63-year-old female who is awake, alert and oriented 1-2 baseline, well-developed, well-nourished, elderly-appearing HEENT: Head is atraumatic, normocephalic. Pupils equal, round. Sclerae is anicteric. NECK: Supple. No JVD. No lymphadenopathy. No thyromegaly. LUNGS: Clear to auscultation. No wheezes or rhonchi. No intercostal retractions. HEART: Regular rate and rhythm. No murmur. ABDOMEN: Soft. Bowel sounds are present. No masses. No tenderness. EXTREMITIES: No pedal edema. No calf tenderness. NEUROLOGICAL: Patient is awake, alert and oriented x1-2. Cranial nerves 2 through 12 are grossly intact. Diffusely weak Please refer to medication reconciliation sheet for a list of medications. The impression and plan of care has been dictated by Pinky Daniels, Nurse Practitioner as directed. Dr. Primitivo MD I have performed a history and examination and MDM of this patient, discussed the same with the dictator, and agree with the dictator's assessment and plan as written ,documented as a scribe. Based on total visit time, I have performed more than 50% of the visit. Patient Condition at Discharge: Stable Plan - Discharge Summary New Discharge Prescriptions: New Aspirin 81 mg PO DAILY tab Atorvastatin [Lipitor] 40 mg PO HS tab Melatonin 5 mg PO HS tab amLODIPine [Norvasc] 10 mg PO DAILY tab Acetaminophen Tab [Tylenol] 650 mg PO Q6HR PRN tab PRN Reason: Mild Pain Or Fever > 100.5 OLANZapine [ZyPREXA] 5 mg PO TID PRN tab PRN Reason: insomnia/agitation/psychosis Pantoprazole [Protonix] 40 mg PO AC-BRKFST tab Sennosides [Senokot] 8.6 mg PO BID PRN tab PRN Reason: Constipation Cyanocobalamin [Vitamin B-12] 1,000 mcg PO DAILY tab OLANZapine [ZyPREXA] 7.5 mg PO HS tab Continue Citalopram Hydrobromide [CeleXA] 10 mg PO DAILY Ondansetron [Zofran] 4 mg PO Q6H PRN PRN Reason: Nausea And Vomiting Discontinued Mirtazapine 7.5 mg PO HS Benztropine Mesylate [Cogentin] 0.5 mg PO BID ARIPiprazole [Abilify] 15 mg PO DAILY Midodrine HCl [ProAmatine] 10 mg PO AC-TID Discharge Medication List Citalopram Hydrobromide [CeleXA] 10 mg PO DAILY 03/11/23 [History] Ondansetron [Zofran] 4 mg PO Q6H PRN 03/11/23 [History] Acetaminophen Tab [Tylenol] 650 mg PO Q6HR PRN tab 04/05/23 [Rx] Aspirin 81 mg PO DAILY tab 04/05/23 [Rx] Atorvastatin [Lipitor] 40 mg PO HS tab 04/05/23 [Rx] Cyanocobalamin [Vitamin B-12] 1,000 mcg PO DAILY tab 04/05/23 [Rx] Melatonin 5 mg PO HS tab 04/05/23 [Rx] OLANZapine [ZyPREXA] 5 mg PO TID PRN tab 04/05/23 [Rx] OLANZapine [ZyPREXA] 7.5 mg PO HS tab 04/05/23 [Rx] Pantoprazole [Protonix] 40 mg PO AC-BRKFST tab 04/05/23 [Rx] Sennosides [Senokot] 8.6 mg PO BID PRN tab 04/05/23 [Rx] amLODIPine [Norvasc] 10 mg PO DAILY tab 04/05/23 [Rx] Follow up Appointment(s)/Referral(s): Delores Mccloud DO [STAFF PHYSICIAN] - 4 Weeks Alina Cancino MD [STAFF PHYSICIAN] - 1 Week Activity/Diet/Wound Care/Special Instructions: Patient is going to [facility] Activity as tolerated Continue with regular diet soft foods due to no teeth Follow-up with oncology outpatient in one month Follow-up vascular surgery outpatient Follow-up neurology in one month Patient will need MRI follow-up in one month for reevaluation on findings found on this admission MRI Patient will establish with primary care provider here as was from [place] previously Follow-up with [facility] outpatient Discharge Disposition: TRANSFER TO SNF/ECF
== END 2023-04-05 10:57 | DRG 80 ==
LOC: EC 08:00 → EEVIPCON 13:34 → 6NMEDSUR 13:34 → OBSVTOIN 13:34 → 6NMEDSUR 19:51 → 5NMEDONC 21:25
PROVIDERS: ADMIT Internal Medicine; ATTEND Internal Medicine
DX: G93.6 Cerebral edema (principal); G92.8 Other toxic encephalopathy; F03.94 Unspecified dementia, unspecified severity, with anxiety; S00.83XA Contusion of other part of head, initial encounter; I65.23 Occlusion and stenosis of bilateral carotid arteries; M40.202 Unspecified kyphosis, cervical region; R29.6 Repeated falls; F20.9 Schizophrenia, unspecified; Z20.822 Contact with and (suspected) exposure to COVID-19; Z96.642 Presence of left artificial hip joint; Z79.899 Other long term (current) drug therapy; Z86.73 Personal history of transient ischemic attack (TIA), and cerebral infarction without residual deficits; Z87.891 Personal history of nicotine dependence
CPT/HCPCS: 36415; 70450; 70496; 70498; 70553; 71260; 72125; 74177; 80048; 80053; 80061; 80320; 81003; 82140; 82607; 82746; 83036; 83605; 83735; 85025; 87636; 93306; 93880; 95816; 96372; 96374; 99285